=== PATIENT | female | born 1945 | race Caucasian/White ===

== ENCOUNTER 2017-06-15 06:42 | Day surgery (SDC) | END 2017-06-15 10:06 | disposition home or self-care (01) ==

== ENCOUNTER 2017-06-19 16:09 | Inpatient (IN) | payer MEDICARE, BC ==
[~2017-06-19] VITALS: Ht 165.1 cm; Wt 118.8 kg
[~2017-06-19 16:09] MED LIST: AMLO10 PO; AMOX875; ATOR40TA PO; Acetaminophen1 EAC2 PO; Aspirin325 MG PO; CADUET 5 MG PO; CEFP200 PO; CHOL10002 PO; CIPR500 PO; CLARINEX D PO; CVS CALCIUM 501 EAC2; DESL5 PO; ERGO400 PO; FURO40 PO; Flonase 0.05% N16 GM; LEVO750 PO; MEDR2.5 PO; METO10 PO; POTCIT10 PO; Prozac20 MG PO; QUIN10 PO; SOLI5 PO; TAMS.4ER PO; TRAZ50 PO; Ventolin Soln3 ML INH; [UNRECOGNIZED DRUG - OTHER] PO
[2017-06-19] MEDS ORDERED: AMOCLA500 PO ×2 (16:43→16:44)
[2017-06-19 16:55] LABS: BASOPHILS ABSOLUTE AUTO 0.09 K/mm3 (0.00-0.23); BASOPHILS PERCENT AUTO 1 % (0-2); EOSINOPHILS ABSOLUTE AUTO 0.09 K/mm3 (0.00-0.68); EOSINOPHILS PERCENT AUTO 1 % (0-6); Hematocrit 45.4 % (33.0-51.0); Hemoglobin 14.7 g/dL (11.5-16.0); IMMATURE GRAN ABSOLUTE AUTO 0.11 K/mm3 (0.00-0.10); IMMATURE GRAN PERCENT AUTO 1 % (0-1); LYMPHOCYTES ABSOLUTE AUTO 1.45 K/mm3 (0.84-5.20); LYMPHOCYTES PERCENT AUTO 9 % (21-46); MONOCYTES ABSOLUTE AUTO 1.36 K/mm3 (0.16-1.47); MONOCYTES PERCENT AUTO 9 % (4-13); Mean Corpuscular HGB 29.9 pg (26.0-34.0); Mean Corpuscular HGB Conc 32.4 g/dL (31.5-36.5); Mean Corpuscular Volume 93 fL (80-100); NEUTROPHILS ABSOLUTE AUTO 12.82 K/mm3 (1.96-9.15); NEUTROPHILS PERCENT AUTO 81 % (41-73); NRBC ABSOLUTE 0.07 K/mm3 (0.00-0.02); NRBC Auto 0.4 /100 WBC (0.0-0.2); RDW Coefficient Variation 14.1 % (11.7-14.2); RDW Standard Deviation 47.7 fL (35.1-46.3); Red Blood Cell Count 4.91 M/mm3 (3.80-5.20); White Blood Cell Count 15.92 K/mm3 (4.00-11.30)
[2017-06-19 17:02] LABS: Mean Platelet Volume 11.5 fL (9.1-12.4); Platelet Count 295 K/mm3 (150-400)
[2017-06-19 17:05] LABS: International Normalized Ratio 1.14; Prothrombin Time Results 11.9 Sec (9.7-11.5)
[2017-06-19 17:05] LABS: Bicarbonate Venous 25.1 mmol/L (24.0-30.0); PCO2 Venous 39.5 mmHg (38-42); PO2 Venous 59.2 mmHg (38-42); pH Blood Venous 7.42 (7.34-7.37)
[2017-06-19 17:18] LABS: Alanine Aminotransfer (ALT/SGP 17 U/L (12-78); Albumin, Blood 2.9 g/dL (3.4-5.0); Albumin/Globulin Ratio 0.7 (0.8-1.8); Alk Phos 96 U/L (50-136); Anion Gap 12 mmol/L (6-16); Aspartate Aminotrans (AST/SGOT 19 U/L (12-37); Bilirubin, Total 0.8 mg/dL (0.1-1.0); Blood Urea Nitrogen 28 mg/dL (8-24); Bun/Creatinine Ratio 42.9 (12.0-20.0); CO2, Blood 22 mmol/L (21-32); Calcium, Blood 9.4 mg/dL (8.5-10.1); Chloride, Blood 104 mmol/L (98-108); Creatinine, Blood 0.65 mg/dL (0.40-1.00); Globulin, Blood 4.4 g/dL (2.2-4.0); Glomerular Filtration Rate >60 (60-); Glucose, Blood 162 mg/dL (70-99); Potassium, Blood 3.9 mmol/L (3.5-5.5); Sodium, Blood 138 mmol/L (136-145); Total Protein, Blood 7.3 g/dL (6.4-8.2); Troponin I <0.015 ng/mL (0.000-0.040)
[2017-06-19] MEDS ORDERED: Retin-A20 G1 TOP (21:14)
[2017-06-19] MEDS ORDERED: ACETAMINOPHEN-1 EACH PO (21:34)
[2017-06-19] MEDS ORDERED: Ventolin5 MG/1 ML INH (21:36)
[2017-06-19] MEDS ORDERED: Centrum Silver1 EAC1 PO (21:36)
[2017-06-19] MEDS ORDERED: ALBU90OI61 INH (21:37)
[2017-06-19] MEDS ORDERED: CIPDEXSU BOTHEARS (21:39)
[2017-06-19] MEDS ORDERED: TRIA15CR3 TOP (21:58)
[2017-06-19] MEDS ORDERED: MOMENI (21:59)
[2017-06-19] MEDS ORDERED: CEFP250 PO (22:00)
[2017-06-19] MEDS ORDERED: FLUO10 PO (22:01)
[2017-06-19] MEDS ORDERED: QUIN10 PO (22:02)
[2017-06-19] MEDS ORDERED: DESL5 PO (22:03)
[2017-06-20 04:51] LABS: BASOPHILS ABSOLUTE AUTO 0.08 K/mm3 (0.00-0.23); BASOPHILS PERCENT AUTO 1 % (0-2); EOSINOPHILS ABSOLUTE AUTO 0.64 K/mm3 (0.00-0.68); EOSINOPHILS PERCENT AUTO 5 % (0-6); Hematocrit 40.7 % (33.0-51.0); Hemoglobin 12.9 g/dL (11.5-16.0); IMMATURE GRAN ABSOLUTE AUTO 0.06 K/mm3 (0.00-0.10); IMMATURE GRAN PERCENT AUTO 1 % (0-1); LYMPHOCYTES PERCENT AUTO 14 % (21-46); MONOCYTES ABSOLUTE AUTO 1.33 K/mm3 (0.16-1.47); MONOCYTES PERCENT AUTO 10 % (4-13); Mean Corpuscular HGB 29.6 pg (26.0-34.0); Mean Corpuscular HGB Conc 31.7 g/dL (31.5-36.5); Mean Corpuscular Volume 93 fL (80-100); Mean Platelet Volume 11.1 fL (9.1-12.4); NEUTROPHILS ABSOLUTE AUTO 9.19 K/mm3 (1.96-9.15); NEUTROPHILS PERCENT AUTO 70 % (41-73); NRBC ABSOLUTE 0.02 K/mm3 (0.00-0.02); NRBC Auto 0.2 /100 WBC (0.0-0.2); Platelet Count 286 K/mm3 (150-400); RDW Coefficient Variation 14.2 % (11.7-14.2); RDW Standard Deviation 48.4 fL (35.1-46.3); Red Blood Cell Count 4.36 M/mm3 (3.80-5.20)
[2017-06-20 05:15] LABS: Alanine Aminotransfer (ALT/SGP 18 U/L (12-78); Albumin, Blood 2.4 g/dL (3.4-5.0); Albumin/Globulin Ratio 0.6 (0.8-1.8); Alk Phos 77 U/L (50-136); Anion Gap 7 mmol/L (6-16); Aspartate Aminotrans (AST/SGOT 17 U/L (12-37); Bilirubin, Total 0.6 mg/dL (0.1-1.0); Blood Urea Nitrogen 22 mg/dL (8-24); Bun/Creatinine Ratio 38.5 (12.0-20.0); CO2, Blood 27 mmol/L (21-32); Calcium, Blood 8.6 mg/dL (8.5-10.1); Chloride, Blood 108 mmol/L (98-108); Creatinine, Blood 0.57 mg/dL (0.40-1.00); Globulin, Blood 3.7 g/dL (2.2-4.0); Glomerular Filtration Rate >60 (60-); Glucose, Blood 124 mg/dL (70-99); Potassium, Blood 3.8 mmol/L (3.5-5.5); Sodium, Blood 142 mmol/L (136-145); Total Protein, Blood 6.1 g/dL (6.4-8.2)
[2017-06-20 22:21] LABS: Influenza A Negative (NEGATIVE); Influenza B Negative (NEGATIVE)
[2017-06-21 05:44] LABS: Hematocrit 47.2 % (33.0-51.0); Mean Corpuscular HGB 29.8 pg (26.0-34.0); Mean Corpuscular HGB Conc 31.8 g/dL (31.5-36.5); Mean Corpuscular Volume 94 fL (80-100); Mean Platelet Volume 11.7 fL (9.1-12.4); Platelet Count 219 K/mm3 (150-400); RDW Coefficient Variation 14.6 % (11.7-14.2); RDW Standard Deviation 49.9 fL (35.1-46.3); Red Blood Cell Count 5.03 M/mm3 (3.80-5.20); White Blood Cell Count 9.69 K/mm3 (4.00-11.30)
[2017-06-21 06:02] LABS: Anion Gap 8 mmol/L (6-16); Blood Urea Nitrogen 16 mg/dL (8-24); Bun/Creatinine Ratio 27.5 (12.0-20.0); CO2, Blood 26 mmol/L (21-32); Calcium, Blood 8.7 mg/dL (8.5-10.1); Chloride, Blood 110 mmol/L (98-108); Creatinine, Blood 0.58 mg/dL (0.40-1.00); Glomerular Filtration Rate >60 (60-); Glucose, Blood 98 mg/dL (70-99); Sodium, Blood 144 mmol/L (136-145)
[2017-06-21 16:23] LABS: Vancomycin, Trough 9.7 ug/mL (5.0-10.0)
[2017-06-22 05:30] LABS: BASOPHILS ABSOLUTE AUTO 0.08 K/mm3 (0.00-0.23); BASOPHILS PERCENT AUTO 1 % (0-2); EOSINOPHILS ABSOLUTE AUTO 1.02 K/mm3 (0.00-0.68); EOSINOPHILS PERCENT AUTO 9 % (0-6); Hematocrit 42.4 % (33.0-51.0); Hemoglobin 13.3 g/dL (11.5-16.0); IMMATURE GRAN ABSOLUTE AUTO 0.05 K/mm3 (0.00-0.10); IMMATURE GRAN PERCENT AUTO 1 % (0-1); LYMPHOCYTES ABSOLUTE AUTO 1.54 K/mm3 (0.84-5.20); LYMPHOCYTES PERCENT AUTO 14 % (21-46); MONOCYTES ABSOLUTE AUTO 1.04 K/mm3 (0.16-1.47); MONOCYTES PERCENT AUTO 10 % (4-13); Mean Corpuscular HGB Conc 31.4 g/dL (31.5-36.5); Mean Corpuscular Volume 96 fL (80-100); Mean Platelet Volume 10.9 fL (9.1-12.4); NEUTROPHILS ABSOLUTE AUTO 7.25 K/mm3 (1.96-9.15); NEUTROPHILS PERCENT AUTO 66 % (41-73); Platelet Count 267 K/mm3 (150-400); RDW Coefficient Variation 14.6 % (11.7-14.2); RDW Standard Deviation 50.9 fL (35.1-46.3); Red Blood Cell Count 4.43 M/mm3 (3.80-5.20); White Blood Cell Count 10.98 K/mm3 (4.00-11.30)
[2017-06-22 06:03] LABS: Anion Gap 7 mmol/L (6-16); Blood Urea Nitrogen 11 mg/dL (8-24); Bun/Creatinine Ratio 17.2 (12.0-20.0); CO2, Blood 26 mmol/L (21-32); Chloride, Blood 107 mmol/L (98-108); Creatinine, Blood 0.64 mg/dL (0.40-1.00); Glomerular Filtration Rate >60 (60-); Glucose, Blood 109 mg/dL (70-99); Potassium, Blood 4.3 mmol/L (3.5-5.5); Sodium, Blood 140 mmol/L (136-145)
[2017-06-26 05:47] LABS: BASOPHILS ABSOLUTE AUTO 0.04 K/mm3 (0.00-0.23); BASOPHILS PERCENT AUTO 0 % (0-2); EOSINOPHILS ABSOLUTE AUTO 0.19 K/mm3 (0.00-0.68); EOSINOPHILS PERCENT AUTO 2 % (0-6); Hematocrit 42.5 % (33.0-51.0); Hemoglobin 13.6 g/dL (11.5-16.0); IMMATURE GRAN ABSOLUTE AUTO 0.06 K/mm3 (0.00-0.10); IMMATURE GRAN PERCENT AUTO 1 % (0-1); LYMPHOCYTES ABSOLUTE AUTO 1.94 K/mm3 (0.84-5.20); LYMPHOCYTES PERCENT AUTO 16 % (21-46); MONOCYTES ABSOLUTE AUTO 1.17 K/mm3 (0.16-1.47); MONOCYTES PERCENT AUTO 10 % (4-13); Mean Corpuscular HGB 29.8 pg (26.0-34.0); Mean Platelet Volume 10.6 fL (9.1-12.4); NEUTROPHILS PERCENT AUTO 72 % (41-73); Platelet Count 316 K/mm3 (150-400); RDW Coefficient Variation 14.1 % (11.7-14.2); RDW Standard Deviation 47.8 fL (35.1-46.3); Red Blood Cell Count 4.57 M/mm3 (3.80-5.20)
[2017-06-26 05:49] LABS: Mean Corpuscular Volume 93 fL (80-100)
[2017-06-26 06:05] LABS: Anion Gap 5 mmol/L (6-16); Blood Urea Nitrogen 20 mg/dL (8-24); Bun/Creatinine Ratio 26.7 (12.0-20.0); CO2, Blood 29 mmol/L (21-32); Calcium, Blood 9.3 mg/dL (8.5-10.1); Chloride, Blood 107 mmol/L (98-108); Creatinine, Blood 0.75 mg/dL (0.40-1.00); Glomerular Filtration Rate >60 (60-); Glucose, Blood 92 mg/dL (70-99); Potassium, Blood 3.9 mmol/L (3.5-5.5); Sodium, Blood 141 mmol/L (136-145)
[2017-06-27] MEDS ORDERED: MIRALAX17 GM PO (12:27)
[2017-06-27] MEDS ORDERED: DULERA 100 MCG/13 GM INH (12:31)
== END 2017-06-27 13:02 | disposition home health service (06) | DRG 871 ==
LOC: ER 16:09 → MEDS 19:11 → ENPENDDIS 06-27 10:00 → MEDS 06-27 13:02
PROVIDERS: Emergency Medicine; Internal Medicine; Internal Medicine Critical Care Medicine
DX: A41.9 Sepsis, unspecified organism (principal); J18.9 Pneumonia, unspecified organism; J96.01 Acute respiratory failure with hypoxia; R04.2 Hemoptysis; J44.1 Chronic obstructive pulmonary disease with (acute) exacerbation; J44.0 Chronic obstructive pulmonary disease with (acute) lower respiratory infection; Z68.41 Body mass index [BMI] 40.0-44.9, adult; G47.33 Obstructive sleep apnea (adult) (pediatric); I10 Essential (primary) hypertension; D41.9 Neoplasm of uncertain behavior of unspecified urinary organ; E66.01 Morbid (severe) obesity due to excess calories; R65.20 Severe sepsis without septic shock; R26.9 Unspecified abnormalities of gait and mobility; K59.00 Constipation, unspecified; Z85.118 Personal history of other malignant neoplasm of bronchus and lung; Z87.891 Personal history of nicotine dependence; Z88.8 Allergy status to other drugs, medicaments and biological substances; Z91.040 Latex allergy status; Z79.899 Other long term (current) drug therapy
CPT/HCPCS: 36415; 71045; 71046; 71260; 80048; 80053; 80202; 82803; 82947; 83605; 83880; 84484; 85025; 85027; 85610; 87040; 87070; 87205; 87804; 93005; 93010; 93306; 94640; 94667; 94760; 94761; 96365; 96375; 97110; 97116; 97162; 97530; 99285; C1751; G8978; G8979; J0456; J0696; J1650; J2405; J2543; J3370; J7030; J7050; Q9967

== ENCOUNTER → 2017-08-30 | Outpatient (CLI) | payer MEDICARE, BC ==
[~2017-08-30] MED LIST changes: +ACETAMINOPHEN-1 EACH PO; +ALBU90OI61 INH; +AMOCLA500 PO; +CEFP250 PO; +CIPDEXSU BOTHEARS; +Centrum Silver1 EAC1 PO; +DULERA 100 MCG/13 GM INH; +FLUO10 PO; +MIRALAX17 GM PO; +MOMENI; +Retin-A20 G1 TOP; +TRIA15CR3 TOP; +Ventolin5 MG/1 ML INH
== END ==
LOC: LAB SHORT 16:39 → LAB 16:39
DX: L82.1 Other seborrheic keratosis (principal); L02.02 Furuncle of face; L08.9 Local infection of the skin and subcutaneous tissue, unspecified
CPT/HCPCS: 87070; 87205

== ENCOUNTER 2020-02-04 07:20 | Day surgery (SDC) | payer MEDICARE, BC ==
[~2020-02-04] VITALS: Ht 165.1 cm; Wt 123.0 kg
[~2020-02-04 07:20] MED LIST changes: +ANORO ELLIPTA1 EAC1; +Aspir 8181 MG PO; +Bisoprolol Fumar5 MG PO; +CLOP75 PO; +FLUT.05NI; -Flonase 0.05% N16 GM; +MYRBETRIQ50 MG PO
--- NOTE | 2020-02-04 10:08 | NUR ---
PT BACK TO RECOVERY ROOM VIA BED POST PROCEDURE. DENIES ANY PAIN OR DISCOMFORT. VSS. RIGHT RADIAL TR BAND IN PLACE. SITE IS C/D/I, WITHOUT BLEEDING OR SWELLING.
--- NOTE | 2020-02-04 10:35 | NUR ---
PT EATING BREAKFAST, VISITING WITH SPOUSE. CALL LIGHT IN REACH, VSS. NO DISTRESS NOTED.
--- NOTE | 2020-02-04 11:15 | NUR ---
DR FINCH AT BEDSIDE SPEAKING WITH PT ABOUT PROCEDURE AND PLAN FOR FOLLOW UP.
--- NOTE | 2020-02-04 12:16 | NUR ---
RIGHT RADIAL TR BAND HAS BEEN FULLY DEFLATED. SITE SOFT, SLIGHTLY TENDER. NO BLEEDING OR SWELLING NOTED. PT HAS AMBULATED TO THE BATHROOM TWICE SINCE PROCEDURE WITHOUT DIFFICULTY.
--- NOTE | 2020-02-04 13:15 | NUR ---
IV DC'D, CATH INTACT. PT AND SPOUSE VERBALIZED UNDERSTANDING OF DISCHARGE INSTRUCTIONS AND FOLLOW UP INFO. PT OUT TO CAR VIA WHEELCHAIR. DENIES DISCOMFORT UPON DISCHARGE
== END 2020-02-04 13:15 | disposition home or self-care (01) ==
LOC: MHTC 07:20
PROC: 4A023N7 Measurement of Cardiac Sampling and Pressure, Left Heart, Percutaneous Approach (ICD-10-PCS; principal; 2020-02-04)
PROC: B201YZZ Plain Radiography of Multiple Coronary Arteries using Other Contrast (ICD-10-PCS; principal; 2020-02-04)
DX: I25.10 Atherosclerotic heart disease of native coronary artery without angina pectoris (principal); E78.5 Hyperlipidemia, unspecified; I11.0 Hypertensive heart disease with heart failure; I50.9 Heart failure, unspecified; J44.9 Chronic obstructive pulmonary disease, unspecified; Z88.5 Allergy status to narcotic agent; Z88.8 Allergy status to other drugs, medicaments and biological substances; Z91.040 Latex allergy status; Z87.891 Personal history of nicotine dependence; Z79.899 Other long term (current) drug therapy; Z79.82 Long term (current) use of aspirin; E66.01 Morbid (severe) obesity due to excess calories; Z68.41 Body mass index [BMI] 40.0-44.9, adult
CPT/HCPCS: 76937; 85347; 93005; 93010; 93454; 99152; 99153; A9270-GY; C1725; C1769; C1874; C1887; C1894; C9600; J1644; J2250; J3010; J7030; J7040; Q9967

== ENCOUNTER → 2021-12-23 | Outpatient (CLI) | payer MEDICARE, BC ==
[2021-12-23 11:00] LABS: Source, Urine Voided
[2021-12-23 13:03] LABS: Appearance, Urine Clear (Clear); Bilirubin, Urine Neg (Neg); Blood, Urine Neg (Neg); Glucose Qualitative, Urine Neg (Neg); Ketones, Urine Neg (Neg); Leukocyte Esterase, Urine Neg (Neg); Nitrite, Urine Neg (Neg); Protein, Urine Neg (Neg); Urobilinogen, Urine NORM (Normal); pH, Urine 6.5 (5.0-8.0)
[2021-12-23 13:17] LABS: Color, Urine Pale Yellow (P-Yellow)
== END | disposition home or self-care (01) ==
LOC: LAB 08:00 → LAB SHORT 08:00 → LAB FUT 12-21 18:25
PROVIDERS: Urology Female Pelvic Medicine and Reconstructive Surgery
DX: N39.46 Mixed incontinence (principal)
CPT/HCPCS: 81003; 87086

== ENCOUNTER 2022-02-07 11:48 | Day surgery (SDC) | payer MEDICARE, BC ==
[~2022-02-07] VITALS: Ht 165.1 cm; Wt 121.0 kg
[2022-02-07 15:39] LABS: Albumin, Blood 3.4 g/dL (3.4-5.0); Bilirubin, Total 0.9 mg/dL (0.1-1.0); Bun/Creatinine Ratio 18.1 (12.0-20.0); Calcium, Blood 9.4 mg/dL (8.5-10.1); Creatinine, Blood 0.66 mg/dL (0.40-1.00); Globulin, Blood 3.4 g/dL (2.2-4.0); Potassium, Blood 3.6 mmol/L (3.5-5.5); Total Protein, Blood 6.8 g/dL (6.4-8.2)
== END 2022-02-07 15:30 | disposition home or self-care (01) ==
LOC: ORSCSDS 11:48
PROVIDERS: Internal Medicine Gastroenterology
PROC: 0DB68ZX Excision of Stomach, Via Natural or Artificial Opening Endoscopic, Diagnostic (ICD-10-PCS; principal; 2022-02-07 13:30)
PROC: 0DB58ZX Excision of Esophagus, Via Natural or Artificial Opening Endoscopic, Diagnostic (ICD-10-PCS; principal; 2022-02-07 13:30)
PROC: 0DBH8ZX Excision of Cecum, Via Natural or Artificial Opening Endoscopic, Diagnostic (ICD-10-PCS; principal; 2022-02-07 13:30)
DX: Z12.11 Encounter for screening for malignant neoplasm of colon (principal); R10.12 Left upper quadrant pain; K22.70 Barrett's esophagus without dysplasia; Z87.11 Personal history of peptic ulcer disease; Z86.010 Personal history of colon polyps; D12.0 Benign neoplasm of cecum; K57.30 Diverticulosis of large intestine without perforation or abscess without bleeding; J44.9 Chronic obstructive pulmonary disease, unspecified; I25.10 Atherosclerotic heart disease of native coronary artery without angina pectoris; I10 Essential (primary) hypertension; G47.33 Obstructive sleep apnea (adult) (pediatric); E66.01 Morbid (severe) obesity due to excess calories; Z68.41 Body mass index [BMI] 40.0-44.9, adult; Z99.81 Dependence on supplemental oxygen; Z79.01 Long term (current) use of anticoagulants; Z79.82 Long term (current) use of aspirin; Z79.899 Other long term (current) drug therapy
CPT/HCPCS: 80053; 88305; 88341; 88342; J0330; J0461; J2405; J2704; J7120

== ENCOUNTER → 2024-01-19 | Outpatient (CLI) | payer MEDICARE, BC ==
[~2024-01-19] MED LIST changes: -ACETAMINOPHEN-1 EACH PO; +AKWA Tears15 ML BOTHEYES; +ALBU90OI6 INH; +ALEN70 PO; +ARTIFICIAL TEAR15 M6 BOTHEYES; +BUDESONIDE0.5 MG/2 M INH; +CIPROFLOX-DEXA7.5 ML BOTHEARS; +DOCU100 PO; +Diflucan150 MG PO; +EZET10 PO; +FAMO20 PO; +GUAI600T33 PO; +IPRATROPIUM BRO30 ML; +LASIX40 MG PO; +LIPITOR80 MG PO; +LISI20 PO; +METO100ER PO; +NASAL SPRAY88 ML UD; +NIGHT TIME PAI1 EAC1 PO; +PANT40 PO; +PSEU120ER PO; +Prednisone10 MG PO; +STIOLTO RESPIMAT4 G2 INH; +TROSPIUM CHLORI60 MG PO; +TRULICITY3 MG/0.5 M SC; +VISBIOME 112.51 EACH PO
[2024-01-19 11:01] LABS: Source, Urine Voided
[2024-01-19 13:36] LABS: Bilirubin, Urine Neg (Neg); Blood, Urine 5+ (Neg); Color, Urine Amber (P-Yellow); Glucose Qualitative, Urine Neg (Neg); Ketones, Urine Neg (Neg); Leukocyte Esterase, Urine 1+ (Neg); Nitrite, Urine Neg (Neg); Protein, Urine 3+ (Neg); Specific Gravity, Urine 1.015 (1.003-1.022); Urobilinogen, Urine NORM (Normal)
[2024-01-19 14:05] LABS: Appearance, Urine Hazy (Clear)
[2024-01-19 14:06] LABS: Bacteria Mod /hpf; Squamous Epithelial Cells Few /hpf (Few)
== END | disposition home or self-care (01) ==
LOC: LAB 10:58 → LAB SHORT 10:58 → EDSTATUS 01-18 09:55 → LAB FUT 01-18 09:55
PROVIDERS: Urology Female Pelvic Medicine and Reconstructive Surgery
DX: N39.0 Urinary tract infection, site not specified (principal)
CPT/HCPCS: 81001; 87077; 87086; 87186

== ENCOUNTER 2024-04-04 07:53 | Inpatient (IN) | payer MEDICARE, BC ==
[~2024-04-04] VITALS: Ht 162.6 cm; Wt 107.3 kg
[~2024-04-04 07:53] MED LIST changes: -LIPITOR80 MG PO
[2024-04-04] MEDS ORDERED: Ondansetron HCl 2 MG / ML 2ML Vial IV ONE (08:00)
[2024-04-04] MEDS ORDERED: Ipratropium/Albuterol SulF 2.5-0.5MG/3 ML Amp INH PRN (08:15)
[2024-04-04 08:34] LABS: Source, Urine Foley catheter
[2024-04-04 08:37] LABS: Appearance, Urine Clear (Clear); Bilirubin, Urine Neg (Neg); Blood, Urine Neg (Neg); Color, Urine Yellow (P-Yellow); Glucose Qualitative, Urine Neg (Neg); Ketones, Urine Neg (Neg); Leukocyte Esterase, Urine Neg (Neg); Nitrite, Urine Neg (Neg); Protein, Urine 2+ (Neg); Specific Gravity, Urine 1.015 (1.003-1.022); Urobilinogen, Urine 1+ (Normal)
[2024-04-04] MEDS ORDERED: CefTRIAXone Sodium 1,000 MG in NS 100 ML IV ONE (08:40)
[2024-04-04] MEDS ORDERED: Furosemide 10 MG/ML 4ML Vial IV ONE (08:40)
[2024-04-04] MEDS ORDERED: Azithromycin 500 MG in NS 250 ML IV ONE (08:40)
[2024-04-04 08:44] LABS: BASOPHILS ABSOLUTE AUTO 0.06 K/mm3 (0.00-0.23); BASOPHILS PERCENT AUTO 0 % (0-2); EOSINOPHILS ABSOLUTE AUTO 0.04 K/mm3 (0.00-0.68); EOSINOPHILS PERCENT AUTO 0 % (0-6); Hematocrit 42.5 % (33.0-51.0); Hemoglobin 13.2 g/dL (11.5-16.0); IMMATURE GRAN ABSOLUTE AUTO 0.08 K/mm3 (0.00-0.10); IMMATURE GRAN PERCENT AUTO 1 % (0-1); LYMPHOCYTES ABSOLUTE AUTO 3.76 K/mm3 (0.84-5.20); LYMPHOCYTES PERCENT AUTO 26 % (21-46); MONOCYTES ABSOLUTE AUTO 1.27 K/mm3 (0.16-1.47); MONOCYTES PERCENT AUTO 9 % (4-13); Mean Corpuscular HGB 30.5 pg (26.0-34.0); Mean Corpuscular HGB Conc 31.1 g/dL (31.5-36.5); Mean Corpuscular Volume 98 fL (80-100); Mean Platelet Volume 11.6 fL (9.1-12.4); NEUTROPHILS ABSOLUTE AUTO 9.55 K/mm3 (1.96-9.15); NEUTROPHILS PERCENT AUTO 65 % (41-73); Platelet Count 276 K/mm3 (150-400); RDW Coefficient Variation 14.4 % (11.7-14.2); RDW Standard Deviation 52.1 fL (35.1-46.3); Red Blood Cell Count 4.33 M/mm3 (3.80-5.20); White Blood Cell Count 14.76 K/mm3 (4.00-11.30)
[2024-04-04 08:49] LABS: Base Excess Venous -12.2 mmol/L; Bicarbonate Venous 15.1 mmol/L (24.0-30.0); PCO2 Venous 43.9 mmHg (38-42); pH Blood Venous 7.18 (7.34-7.37)
[2024-04-04 09:00] LABS: Albumin, Blood 2.9 g/dL (3.4-5.0); Albumin/Globulin Ratio 0.8 (0.8-1.8); Bilirubin, Total 1.3 mg/dL (0.1-1.0); Bun/Creatinine Ratio 29.7 (12.0-20.0); Calcium, Blood 9.1 mg/dL (8.5-10.1); Creatinine, Blood 0.81 mg/dL (0.40-1.00); Globulin, Blood 3.5 g/dL (2.2-4.0); Potassium, Blood 3.7 mmol/L (3.5-5.5); Total Protein, Blood 6.4 g/dL (6.4-8.2)
[2024-04-04 09:06] LABS: Bacteria Few /hpf; Red Blood Cells, Urine 0-2 /hpf (0-2); Squamous Epithelial Cells Few /hpf (Few)
[2024-04-04] MEDS ORDERED: Bisacodyl 10 MG Supp PR PRN (09:50)
[2024-04-04] MEDS ORDERED: Ondansetron 4 MG TAB PO PRN (09:55)
[2024-04-04] MEDS ORDERED: TraZODone HCl 50 MG Tab PO PRN (09:55)
[2024-04-04] MEDS ORDERED: Magnesium Hydroxide Conc 10 ML UDC PO PRN (09:55)
[2024-04-04] MEDS ORDERED: FLU VACC TS2024-25(6MOS UP)/PF 45 MCG/0.5 ML SYRINGE IM SCH (09:55)
[2024-04-04] MEDS ORDERED: Metolazone 2.5 MG Tab PO ONE (09:55)
[2024-04-04] MEDS ORDERED: Ipratropium/Albuterol SulF 2.5-0.5MG/3 ML Amp INH SCH (10:00)
[2024-04-04] MEDS ORDERED: Albuterol 2.5 MG/3 ML VIAL INH PRN (10:00)
[2024-04-04] MEDS ORDERED: HydrALAZINE HCl 20 MG / ML 1ML Vial IV PRN (10:10)
[2024-04-04] MEDS ORDERED: Mometasone/Formoterol MDI 200/5 mcg 13 GM INH SCH (10:30)
[2024-04-04 11:34] LABS: Adenovirus Not Detected (NOT DETECT); Bordetella pertussis Not Detected (NOT DETECT); Chlamydophila pneumoniae Not Detected (NOT DETECT); Coronavirus 229E Not Detected (NOT DETECT); Coronavirus HKU1 Not Detected (NOT DETECT); Coronavirus NL63 Not Detected (NOT DETECT); Coronavirus OC43 Not Detected (NOT DETECT); Human Metapneumovirus Not Detected (NOT DETECT); Human Rhinovirus/Enterovirus Not Detected (NOT DETECT); Influenza A/2009-H1 Not Detected (NOT DETECT); Influenza A/H1 Not Detected (NOT DETECT); Influenza A/H3 Not Detected (NOT DETECT); Influenza B Not Detected (NOT DETECT); Mycoplasma pneumoniae Not Detected (NOT DETECT); Parainfluenza Virus 1 Not Detected (NOT DETECT); Parainfluenza Virus 2 Not Detected (NOT DETECT); Parainfluenza Virus 3 Not Detected (NOT DETECT); Parainfluenza Virus 4 Not Detected (NOT DETECT); Respiratory Syncytial Virus Not Detected (NOT DETECT); SARS-Cov-2 (COVID-19), BioFire Not Detected (NOT DETECT)
[2024-04-04 12:36] VITALS: BP 95/54
[2024-04-04] MEDS ORDERED: LISI5 PO (13:07)
[2024-04-04 13:09] LABS: Base Excess Venous 1.3 mmol/L; Bicarbonate Venous 24.5 mmol/L (24.0-30.0); PCO2 Venous 45.8 mmHg (38-42); pH Blood Venous 7.37 (7.34-7.37)
[2024-04-04 15:14] VITALS: BP 105/55
--- NOTE | 2024-04-04 17:57 | NUR ---
ASSUMPTION OF CARE/SHIFT SUMMARY REPORT RECIEVED FROM SENIOR DIRECTOR INSIGHT. PT ARRIVED TO PCU AROUND 1230. PT SLID FROM ER GURNEY TO PCU BED. PT A&O X4, CALM, COOPERATIVE TO CARE. HR IN THE 80'S SINUS RHYTHM, SBP IN THE 90'S-100'S, PT DENIES CP/PRESSURE, NUMB/TINGLING. L/S WITH CRACKLES T/O, HX OF R LOWER LOBECTOMY, O2 RANGING FROM THE 80'S-90'S ON BIPAP SETTINGS OF 12, 8, FIO2 70%. PT DESATS TO THE MID 70'S LOW 80'S WITH MINIMAL EXEERTION/TALKING. PT UNABLE TO TOLERATE GOING OFF BIPAP. PT WITH BARCENAS CATH IN PLACE, DRAINING TO GRAVITY. DIURESING PT. WILL CONTINUE TO MONITOR PT AND REPORT TO 911 OPERATOR RN.
[2024-04-04] MEDS ORDERED: Bumetanide 0.25 MG/ML 4ML ViaL IV SCH (18:00)
[2024-04-04 18:16] VITALS: BP 120/55
[2024-04-04 19:36] VITALS: BP 123/55
[2024-04-04] MEDS ORDERED: Famotidine 20 MG Tab PO SCH (21:00)
[2024-04-04] MEDS ORDERED: Metoprolol Tartrate 50 MG Tab PO SCH (21:00)
[2024-04-04] MEDS ORDERED: Lactobacil 2-S.Thermo-Bifido 1 1 Cap PO SCH (21:00)
[2024-04-04] MEDS ORDERED: Docusate Sodium 100 MG Cap PO SCH (21:00)
[2024-04-04] MEDS ORDERED: GuaiFENesin 600 MG TabCR PO SCH (21:00)
--- NOTE | 2024-04-04 21:43 | NUR ---
ASSUMPTION OF CARE THIS RN ASSUMED CARE OF PT AT 1900. UPON INITIAL ASSESSMENT, PT A&OX4, DENIES PAIN. C/O DISCOMFORT R/T BIPAP. BIPAP MASK CHANGED TO RELIEVE PRESSURE FROM PT'S NOSE, PT ENDORSES IMPROVEMENT IN COMFORT LEVEL. BIPAP REMOVED FOR MED ADMINISTRATION, PT DESATTED TO 70'S WHILE ON 15L. PT REMAINS BIPAP DEPENDENET. SHE IS COMPLIANT WITH CARES. VITALLY STABLE. BARCENAS CATHETER IN PLACE PATENT, DRAINING BY GRAVITY. PT'S NEEDS MET AT THIS TIME.
[2024-04-04 23:41] VITALS: BP 112/61
[2024-04-05] VITALS (11 sets, daily range): BP systolic 82–133; BP diastolic 45–106
--- NOTE | 2024-04-05 05:43 | NUR ---
SHIFT SUMMARY PT BIPAP DEPENDENT WITH FIO2 OF 60%. BRIEFLY TOLERATED 15L OXYMASK FOR SOME ORAL CARE THIS AM. NO ACUTE DISTRESS AT THIS TIME.
[2024-04-05 06:17] LABS: BASOPHILS ABSOLUTE AUTO 0.03 K/mm3 (0.00-0.23); BASOPHILS PERCENT AUTO 0 % (0-2); EOSINOPHILS ABSOLUTE AUTO 0.15 K/mm3 (0.00-0.68); EOSINOPHILS PERCENT AUTO 2 % (0-6); Hematocrit 38.6 % (33.0-51.0); Hemoglobin 12.2 g/dL (11.5-16.0); IMMATURE GRAN ABSOLUTE AUTO 0.03 K/mm3 (0.00-0.10); IMMATURE GRAN PERCENT AUTO 0 % (0-1); LYMPHOCYTES ABSOLUTE AUTO 0.95 K/mm3 (0.84-5.20); LYMPHOCYTES PERCENT AUTO 10 % (21-46); MONOCYTES ABSOLUTE AUTO 1.28 K/mm3 (0.16-1.47); MONOCYTES PERCENT AUTO 13 % (4-13); Mean Corpuscular HGB 30.5 pg (26.0-34.0); Mean Corpuscular HGB Conc 31.6 g/dL (31.5-36.5); Mean Corpuscular Volume 97 fL (80-100); Mean Platelet Volume 11.5 fL (9.1-12.4); NEUTROPHILS ABSOLUTE AUTO 7.15 K/mm3 (1.96-9.15); NEUTROPHILS PERCENT AUTO 75 % (41-73); Platelet Count 219 K/mm3 (150-400); RDW Coefficient Variation 14.6 % (11.7-14.2); RDW Standard Deviation 52.6 fL (35.1-46.3); White Blood Cell Count 9.59 K/mm3 (4.00-11.30)
[2024-04-05 06:39] LABS: Albumin, Blood 2.7 g/dL (3.4-5.0); Albumin/Globulin Ratio 0.8 (0.8-1.8); Calcium, Blood 9.1 mg/dL (8.5-10.1); Creatinine, Blood 0.79 mg/dL (0.40-1.00); Globulin, Blood 3.4 g/dL (2.2-4.0); Magnesium, Blood 2.3 mg/dL (1.6-2.4); Total Protein, Blood 6.1 g/dL (6.4-8.2)
[2024-04-05] MEDS ORDERED: MethylPREDNISolone Sod Succ 125 MG Vial IV SCH (08:00)
[2024-04-05] MEDS ORDERED: Metolazone 2.5 MG Tab PO ONE (08:00)
[2024-04-05] MEDS ORDERED: FLUoxetine HCL 20 MG CAP PO SCH (09:00)
[2024-04-05] MEDS ORDERED: Enoxaparin 40 MG/0.4 ML SYR SC SCH (09:00)
[2024-04-05] MEDS ORDERED: AmLODIPine Besylate 5 MG Tab PO SCH (09:00)
[2024-04-05] MEDS ORDERED: Atorvastatin 40 MG Tab PO SCH (09:00)
[2024-04-05] MEDS ORDERED: Clopidogrel Bisulfate 75 MG Tab PO SCH (09:00)
[2024-04-05] MEDS ORDERED: Azithromycin 500 MG in NS 250 ML IV SCH (09:00)
[2024-04-05] MEDS ORDERED: Polyethylene Glycol 3350 17 gm PO SCH (09:00)
[2024-04-05] MEDS ORDERED: Bumetanide 0.25 MG/ML 4ML ViaL IV SCH (09:00)
[2024-04-05] MEDS ORDERED: CefTRIAXone Sodium 2,000 MG in NS 100 ML IV SCH (09:00)
[2024-04-05] MEDS ORDERED: Loratadine 10 MG Tab PO SCH (09:00)
[2024-04-05] MEDS ORDERED: Fluticasone 0.05% Nasal Spray SCH (09:00)
[2024-04-05] MEDS ORDERED: Methocarbamol 500 MG Tab PO PRN (11:20)
--- NOTE | 2024-04-05 18:03 | NUR ---
CALL PLACED TO PROVIDER. PTS BLOOD PRESSURE TRENDING DOWN, SBP IN THE 80'S-90'S, LAST BP 91/45 MAP 58, SHE IS ASYMPTOMATIC. PROVIDER NOTIFIED. NO NEW ORDERS AT THIS TIME. PER PROVIDER WILL HOLD ALL BLOOD PRESSURE MEDICATIONS AND DIURETICS UNTIL BLOOD PRESSURE IMPROVES, PT TO BE ON BEDREST, NO GETTING UP AT THIS TIME. IF PTS BLOOD PRESSURE CONTINUES TO TREND DOWN PROVIDER TO BE CALLED AND NOTIFIED FOR FURTHER INSTRUCTION. BP RECHECKED AND NOW AT 99/52 MAP 67. WILL MONITOR PT AND CALL PROVIDER IN BP CONTINUES TO TREND DOWN.
--- NOTE | 2024-04-05 18:22 | NUR ---
SHIFT SUMMARY PT A&O X4, CALM, COOPERATIVE TO CARE. SINUS RHYTHM, 70'S, DENIES CP/PRESSURE, NUMB/TINGLING, SBP IN THE 100'S T/O SHIFT, LAST COUPLE PRESSURE HAVE BEEN SOFT, NOTIFIED, HOLDING BP MEDICATIONS AND DIURETIC FOR NOW. PT DENIES LIGHTHEADEDNESS, DIZZY, BLURRY VISION. PT TO STAY IN BED AND NOT GET UP UNTIL BP IMPROVED. PT O2 >90%, ALTERNATING BETWEEN BIPAP 18/14, FIO2 50%, AND 50L HIGH FLOW HEATED NC. PT IS ABLE TO TOLERATE BEING OFF BIPAP FOR PO INTAKE FOR SHORT PERIODS OF TIME. SHE DESATS IN THE LOW 80'S BUT RECOVERS WITH BIPAP. PT DEIES QUESTIONS OR CONCERNS WILL CONTINUE TO MONITOR AND REPORT TO ASSOCIATE PROFESSOR OF LIBRARY MEDIA RN.
--- NOTE | 2024-04-06 02:38 | NUR ---
SHIFT SUMMARY PT INTERMITTENTLY ANXIOUS THIS SHIFT. MAINTAINING SPO2 > 90%. TOLERATING BIPAP 60% FIO2 FAIRLY WELL. VITALLY STABLE AT THIS TIME.
[2024-04-06 03:49] VITALS: BP 132/67
[2024-04-06 06:14] LABS: Hemoglobin 12.5 g/dL (11.5-16.0); Mean Corpuscular HGB 30.9 pg (26.0-34.0); Mean Corpuscular HGB Conc 32.1 g/dL (31.5-36.5); Mean Corpuscular Volume 96 fL (80-100); Mean Platelet Volume 12.1 fL (9.1-12.4); Platelet Count 252 K/mm3 (150-400); RDW Coefficient Variation 14.6 % (11.7-14.2); RDW Standard Deviation 51.9 fL (35.1-46.3); Red Blood Cell Count 4.05 M/mm3 (3.80-5.20); White Blood Cell Count 8.63 K/mm3 (4.00-11.30)
[2024-04-06 06:45] LABS: Calcium, Blood 9.1 mg/dL (8.5-10.1); Creatinine, Blood 0.96 mg/dL (0.40-1.00); Magnesium, Blood 2.7 mg/dL (1.6-2.4); Potassium, Blood 3.6 mmol/L (3.5-5.5)
[2024-04-06 07:21] VITALS: BP 123/52
[2024-04-06] MEDS ORDERED: Metolazone 2.5 MG Tab PO SCH (09:00)
[2024-04-06] MEDS ORDERED: TraZODone HCl 50 MG Tab PO PRN (11:55)
[2024-04-06 15:39] VITALS: BP 104/59
[2024-04-06 18:28] VITALS: BP 96/71
--- NOTE | 2024-04-06 18:39 | NUR ---
SHIFT SUMMARY A&O X4, ANXIOUS, COOPERATIVE TO CARE. SINUS RHYTHM, 80'S, DENIES CP/PRESSURE, SBP IN THE 100'S, PT DENIES ANY DIZZY, WHITMORE, BLURRY VISION. ALTERNATING BETWEEN HIGH FLOW HEATED NC 50L FIO2 60% AND BIPAP 18/14, FIO2 40%. O2 >90%, SHE OCASSIONALLY DESATS BUT RECOVERES AFTER BIPAP IS PUT BACK ON AND DEEP BREATHING. PT TO CONTINUE DIURESING BP ALLOWS. PT DENIES ANY QUESTIONS OR CONCERNS AT THIS TIME, WILL MONITOR AND REPORT TO RISK TECH RN.
[2024-04-06 19:11] VITALS: BP 105/55
[2024-04-06] MEDS ORDERED: BusPIRone HCl 5 MG Tab PO SCH (21:00)
[2024-04-07] VITALS (7 sets, daily range): BP systolic 111–164; BP diastolic 55–86
[2024-04-07 05:21] LABS: Hematocrit 40.1 % (33.0-51.0); Hemoglobin 12.9 g/dL (11.5-16.0)
[2024-04-07 05:47] LABS: Bun/Creatinine Ratio 51.8 (12.0-20.0); Creatinine, Blood 0.99 mg/dL (0.40-1.00); Magnesium, Blood 2.6 mg/dL (1.6-2.4); Phosphorus, Blood 3.2 mg/dL (2.5-4.9); Potassium, Blood 3.4 mmol/L (3.5-5.5)
--- NOTE | 2024-04-07 09:21 | NUR ---
AM NOTE: PATIENT ALERT AND ORIENTED. VERY ANXIOUS IN GENERAL ABOUT HOSPITAL STAY. PATIENT EXPRESSES SADNESS SURROUNDING HER HUSBANDS BLADDER CANCER AND RECENTLY FINDING OUT HER BROTHER IS ALSO IN THE HOSPITAL. THIS RN PROVIDES LISTENING AND SUPPORT. PERRLA, WEARING GLASSES. OVERALL WEAK. BED REST AT THIS TIME DUE TO OXYGEN NEEDS. PATIENT ABLE TO HELP STAFF TURN IN BED. DENIES NUMBNESS/TINGLING. TELE SHOWING SR WITH HR 70-80'S. SBP ELEVATED THIS AM IN THE 160'S. DENIES CHEST PAIN/PRESSURE/PALPITATIONS. EDEMA IMPROVING PER PATIENT. POWERGLIDE TO LEFT UPPER ARM SALINE LOCKED POST ANTIBIOTIC INFUSION. ON AIRVO AT 50L AND 59% FIO2. SATING MID 90'S. BIPAP ON STANDBY. DESATS TO HIGH 80'S UPON TALKING AND MOVING IN BED. OCCASIONAL COUGH, PATIENT DENIES SPUTUM PRODUCTION. RR 20-22. EVEN AND UNLABORED RESPIRATIONS AT REST. PATIENT VERY CONCERNED ABOUT GETTING MORE OXYGEN AT HOME. THIS RN REINFORCED PATIENTS HOSPITAL OXYGEN IS STILL BEING TITRATED AND INVOLVEMENT OF CASE MANAGEMENT TO HELP MANAGE HOME OXYGEN SITUATION ONCE PATIENT IS CLOSER TO DISCHARGE. BOWEL TONES PRESENT IN ALL FOUR QUADRANTS. PATIENT DENIES ABDOMINAL PAIN/NAUSEA. EXPRESSES "EXTREME HUNGER" THIS AM. TOLERATING PO DIET. FLUID RESTRICTION IN PLACE. PATIENT EDUCATED ON FLUID RESTRICTION AND CHF. PATIENT COMPLAINS OF NOT HAVING BOWEL MOVEMENT YET. STOOL SOFTNERS AND BOWEL CARE CONTINUED. BARCENAS CATH IN PLACE DRAINING CLEAR/YELLOW URINE. CATH CARE COMPLETED THIS AM. SKIN OVERALL C/D/I WITH VERY SMALL EXCORIATION TO LEFT GROIN/PANUS, BARRIER CREAM APPLIED. SCATTERED BRUISING. DR. ALLEN AT BEDSIDE THIS AM, THIS RN PRESENT FOR MD JONES. NO NEW ORDERS FOR THIS RN TO PLACE. THIS RN SPOKE WITH PATIENT SON ON PHONE THIS AM AND PROVIDED UPDATE. CALL LIGHT IN REACH. DENIES NEEDS AT THIS TIME.
[2024-04-07] MEDS ORDERED: Acetaminophen 500MG/DP-Hydram 25MG HCL 1 Tab PO PRN (09:30)
[2024-04-07] MEDS ORDERED: BusPIRone HCl 10 MG Tab PO PRN (09:35)
[2024-04-07] MEDS ORDERED: Acetaminophen 325 MG TABLET PO PRN (09:35)
[2024-04-07] MEDS ORDERED: BusPIRone HCl 10 MG Tab PO SCH (10:00)
--- NOTE | 2024-04-07 10:57 | NUR ---
PATIENT ATTEMPTED BOWEL MOVEMENT ON BEDPAN WITH NO SUCCESS. PLAN FOR MORE BOWEL CARE MEDS. JUST WITH TURNING IN BED FOR BEDPAN ASSISTANCE PATIENT DESATS TO 81%, NEEDING ADDITIONAL OXYGEN TO RECOVER.
[2024-04-07] MEDS ORDERED: Insulin Human Lispro 100 Units/ML 3ML Syringe SC SCH (11:30)
[2024-04-07] MEDS ORDERED: Lactulose 20 GM/30 ML UDC PO SCH (13:00)
--- NOTE | 2024-04-07 13:15 | NUR ---
VITAL SIGNS REMAIN STABLE. DR. ROJAS TO BEDSIDE. THIS RN AND PRESENT FOR MD VISIT. NO NEW ORDERS FOR THIS RN TO PLACE. PATIENT ANXIOUS ABOUT GOING HOME AND HAVING ALL THE RIGHT EQUIPMENT. DR. ROJAS AND THIS RN REASSURED PATIENT SHE WILL NOT DISCHARGE UNTIL SHE IS MEDICALLY STABLE AND ALL HER HOME EQUIPMENT AND NEEDS ARE FIGURED OUT. PATIENT FEELING BETTER AFTER DISCUSSION. REMAINS AT BEDSIDE. CALL LIGHT IN REACH.
--- NOTE | 2024-04-07 16:42 | NUR ---
SHIFT SUMMARY: NO ACUTE CHANGES. PATIENT REMAINS ALERT AND ORIENTED. TELE CONTINUES TO SHOW SR. NO TELE EVENTS THIS SHIFT. REMAINS ON AIRVO AT 50L AND 60% SATING 90-94%. DESATING TO MID 80'S WITH TALKING AND MOVING AROUND IN BED. PHYSICAL THERAPY IN TO WORK WITH PATIENT IN BED. BOWEL CARES MEDS PROVIDED. PATIENT ON BEDPAN TWICE THIS SHIFT ATTEMPTING BOWEL MOVEMENTS. PASSING GAS. BARCENAS CATH CONTINUES TO DRAIN CLEAR/YELLOW URINE. FLUID RESTRICTION IN PLACE. TO BEDSIDE THIS SHIFT AND UPDATED BY THIS RN. THIS RN ALSO SPOKE ON PHONE WITH PATIENTS NIDHI HICKS AND PROVIDED UPDATE. CALL LIGHT IN REACH.
[2024-04-07] MEDS ORDERED: MethylPREDNISolone Sod Succ 125 MG Vial IV SCH (21:00)
[2024-04-08 04:35] LABS: Hematocrit 41.3 % (33.0-51.0); Hemoglobin 13.6 g/dL (11.5-16.0)
[2024-04-08 04:44] VITALS: BP 134/73
[2024-04-08 04:57] LABS: Magnesium, Blood 2.5 mg/dL (1.6-2.4)
[2024-04-08 04:58] LABS: Calcium, Blood 9.7 mg/dL (8.5-10.1); Creatinine, Blood 1.02 mg/dL (0.40-1.00); Potassium, Blood 3.3 mmol/L (3.5-5.5)
[2024-04-08] MEDS ORDERED: Potassium Chloride 20 MEQ TabCR PO ONE (07:00)
[2024-04-08 08:01] VITALS: BP 133/68
--- NOTE | 2024-04-08 10:00 | NUR ---
MD AT BEDSIDE: MD CAME TO BEDSIDE AND ROUNDED ON PATIENT. PLAN WILL BE CONTINUE MEDICATIONS AND GET HER OXYGEN NEEDS DOWN.
--- NOTE | 2024-04-08 10:18 | NUR ---
PATIENT DANGLED ON EDGE OF BED AND WAS ABLE TO STAND UP BESIDE THE BED WITH THE FRONT WHEELED WALKER AND DID WELL. DID NOT DESAT AND PATIENT STATED SHE DID NOT FEEL LIGHT HEADED OR DIZZY. BACK IN BED AND RESTING WITH THE BED AT THE LOWEST POSITION AND CALL LIGHT WITHIN REACH.
[2024-04-08] MEDS ORDERED: Ofloxacin 0.3% Otic Soln 5 ML RIGHTEAR SCH (10:27)
[2024-04-08 11:52] VITALS: BP 121/65
--- NOTE | 2024-04-08 16:42 | NUR ---
HANDOFF REPORT: PATIENT IS ALERT AND ORIENTED X4 AND ACTIVE IN HER CARE. IS SATTING >92% ON AIRVO WITH FIO2 ON 61%. ON TELE SHOWING SINUS RYTHM WITH RATE IN 70'S. WAS ABLE TO STAND UP AT BEDSIDE WITH FWW AND TOLERATED IT WELL. NEEDED SOME COVERAGE FOR BLOOD SUGARS. TALKED WITH FBI INVESTIGATOR REGARDING PLACEMENT AFTER DISCHARGE. PLAN IS CONTINUE TO DECREASE OXYGEN NEEDS AND WORK ON GETTING UP MORE. REPORT WAS GIVEN TO DYAN FORBES WHO WILL TAKE OVER CARE.
[2024-04-08 16:45] VITALS: BP 112/54
[2024-04-08] MEDS ORDERED: Potassium Chloride 20 MEQ TabCR PO SCH (17:00)
[2024-04-08 20:12] VITALS: BP 96/54
[2024-04-08 23:26] VITALS: BP 118/67
[2024-04-09 03:27] VITALS: BP 120/62
--- NOTE | 2024-04-09 04:22 | NUR ---
SHIFT SUMMARY THIS RN ASSUMED CARE OF PATIENT AT 19. NO ACUTE CHANGES OVERNIGHT. PT USING AIRVO T/O THIS SHIFT, 45L AND 55% FIO2. PT A&O X4. CALLING APPROPRIATELY. SBP 90'S AT BEGINNING OF SHIFT, OTHERWISE VITALS HAVE REMAINED STABLE. PT REPOSTIIONING SELF IN BED INDPENDENTLY. PT MAINTAINED FLUID RESTRICTION DURING THIS SHIFT. BARCENAS CATHETER PATENT AND DRAINING TO GRAVITY. BED IN LOWEST POSTITION AND CALL LIGHT WITHIN REACH. THIS RN WILL REPORT TO ONCOMING DAYSHIFT RN.
[2024-04-09 04:49] LABS: Bun/Creatinine Ratio 56.4 (12.0-20.0); Calcium, Blood 9.7 mg/dL (8.5-10.1); Creatinine, Blood 1.1 mg/dL (0.40-1.00); Potassium, Blood 3.4 mmol/L (3.5-5.5)
[2024-04-09 07:41] VITALS: BP 117/63
--- NOTE | 2024-04-09 10:25 | NUR ---
AM NOTE: PATIENT ALERT AND ORIENTED. VERY ANXIOUS ABOUT WHAT WILL HAPPEN WHEN PATIENT GOES HOME. THIS RN REASSURED PATIENT SHE WILL NOT BE DISCHARGED UNTIL SHE IS MEDICALLY STABLE AND HOME OXYGEN OR REHAB IS FIGURED OUT. PT/OT ORDERS IN PLACE. PLAN FOR PATIENT TO STAND AT EDGE OF BED TODAY AND POSSIBLY SIT IN CHAIR FOR MEALS. TELE SHOWING SR WITH HR 70'S. SBP 110'S THIS AM. DENIES CHEST PAIN/PRESSURE/PALPITATIONS. PPP. POWERGLIDE SALINE LOCKED. MINIMAL EDEMA TO BLE, IMPROVED. FLUID RESTRICTION IN PLACE. STRICT I/0. ON AIRVO AT 45L AND 55%. SATING MID 90'S. LUNG SOUNDS CLEAR IN BILATERAL UPPER LOBES AND DIMINISHED OTHERWISE. OCCASIONAL MOIST SOUNDING COUGH. DENIES SPUTUM PRODUCTION. BOWEL TONES PRESENT IN ALL QUADRANTS. TOLERATING PO DIET. BARCENAS CATH IN PLACE DRAINING TO GRAVITY. CATH CARE COMPLETED THIS AM. URINE CLEAR/YELLOW. BOWEL CARE MEDS GIVEN THIS AM. DENIES ABDOMINAL PAIN/NAUSEA. THIS RN REVIEWED EDUCATION WITH PATIENT CONCERNING CONGESTIVE HEART FAILURE, EMPHYSEMA, AND DIURETICS. CALL LIGHT IN REACH, PATIENT DENIES NEEDS AT THIS TIME.
[2024-04-09 11:18] VITALS: BP 107/65
[2024-04-09 16:06] VITALS: BP 94/60
[2024-04-09 18:09] VITALS: BP 97/63
--- NOTE | 2024-04-09 18:12 | NUR ---
SHIFT SUMMARY: NO ACUTE CHANGES. PATIENT UP TO CHAIR AT BEDSIDE FOR A COUPLE HOURS THIS AFTERNOON AND TOLERATED WELL. TELE CONTINUES TO SHOW SR WITH HR 60-70'S. AIRVO 45L AND 45%. BARCENAS CATH CONTINUES TO DRAIN CLEAR/YELLOW URINE. TOLERATING PO DIET WELL. ACHS BLOOD SUGARS IN PLACE. AND FRIENDS AT BEDSIDE THIS AFTERNOON. CALL LIGHT IN REACH. DENIES NEEDS.
[2024-04-09 19:46] VITALS: BP 104/71
[2024-04-09] MEDS ORDERED: Insulin Glargine-Yfgn 100 Unit/mL 3 ML SYR SC SCH (21:00)
[2024-04-10] VITALS (7 sets, daily range): BP systolic 105–123; BP diastolic 58–90
--- NOTE | 2024-04-10 04:27 | NUR ---
SHIFT SUMMARY NO ACUTE CHANGES DURING THIS SHIFT. PT SWITCHED FROM AIRVO TO HIFLOW NC AT BEGINNING OF SHIFT. PT WAS ON 10L VIA NC AT BEGINNNING OF SHIFT, PT WAS TITRATED DOWN TO 7L AND REMAINS ON 7L AT THIS TIME. SPO2 >88%. OTHER VSS. PT CALLING APPROPRIATELY. REPOSITIONING SELF INDEPENDENTLY. BARCENAS CATHETER PATENT AND DRAINING TO GRAVITY. BED IN LOWEST POSITION AND CALL LIGHT WITHIN REACH. THIS RN WILL REPORT TO ONCOMING DAYSHIFT RN.
[2024-04-10 05:53] LABS: Bun/Creatinine Ratio 60.2 (12.0-20.0); Calcium, Blood 9.3 mg/dL (8.5-10.1); Creatinine, Blood 1.13 mg/dL (0.40-1.00); Potassium, Blood 3.9 mmol/L (3.5-5.5)
[2024-04-10] MEDS ORDERED: Famotidine 20 MG Tab PO SCH (09:00)
[2024-04-10] MEDS ORDERED: Acetaminophen 325 MG TABLET PO PRN (09:25)
[2024-04-10] MEDS ORDERED: PredniSONE 20 MG Tab PO SCH (10:00)
--- NOTE | 2024-04-10 17:48 | NUR ---
Shift Summary Pt alert, oriented x4; anxious t/o shift. Expressed concern regarding breathing and o2 titration. Spo2 kept >88% on 7-10l during shift. Pt reports "all over" pain this am, medicated x1 with tylenol. Pt denies chest pain/pressure, nausea, numb/tingling. Pt up to chair with 1 person assist this am, stayed up until after lunch time. When initially up in chair pt reporting dizziness, resolved. Tele sinus, bp soft at times but stable this afternoon. Abd soft, nontender hypoactive bt; pt had bm during shift. Pt noncompliant with fluid restriction, pt educated on need for restrictions and patient continues to ask for additional fluid and had friend bring in a smoothie. No other acute changes noted. Plans to take out aguirre catheter this evening. Will continue to monitor.
--- NOTE | 2024-04-10 18:21 | NUR ---
Patient refusing to allow staff to remove aguirre catheter, attempted to educate patient on increased risk for infection the longer the aguirre catheter was in place and the plan had been discussed with the Dr, patient continues to refuse the removal. Dr Meraz notified, no new orders at this time.
[2024-04-11 03:43] VITALS: BP 121/83
--- NOTE | 2024-04-11 04:16 | NUR ---
SHIFT SUMMARY NO ACUTE CHANGES OVERNIGHT. NEURO INTACT. PT CONTINUES TO BE ANXIOUS WITH PLAN OF CARE. EDUCATED T/O SHIFT REGARDING PLAN OF CARE. PT CONTINUES TO REFUSE REMOVAL OF BARCENAS CATHETER. EDUCATED PATIENT ON NEED TO REMOVE CATHETER. BARCENAS CATHETER REMAINS IN PLACE AND DRAINING TO GRAVITY. PT TITRATED DOWN TO 5L VIA NC WHICH IS BASELINE AT HOME. PT REMAINS ON 5L VIA NC WITH SPO2 >88%. OTHER VSS. PT ABLE TO REPOSITION SELF IN BED INDEPENDENTLY. FLUID RESTRICTION MAINTAINED. PT UNDER NOC FLUID LIMIT CURRENTLY. BED IN LOWEST POSITION AND CALL LIGHT WITHIN REACH. THIS RN WILL REPORT TO ONCOMING DAYSHIFT RN.
[2024-04-11 05:15] LABS: Bun/Creatinine Ratio 70.7 (12.0-20.0); Calcium, Blood 10.1 mg/dL (8.5-10.1); Creatinine, Blood 1.16 mg/dL (0.40-1.00); Potassium, Blood 3.7 mmol/L (3.5-5.5)
[2024-04-11 07:52] VITALS: BP 98/62
[2024-04-11 09:33] VITALS: BP 111/57
[2024-04-11] MEDS ORDERED: Torsemide 20 MG TAB PO SCH (10:00)
[2024-04-11 12:15] VITALS: BP 100/54
[2024-04-11] MEDS ORDERED: Polyethylene Glycol 3350 17 gm PO PRN (16:10)
[2024-04-11 16:46] VITALS: BP 99/60
--- NOTE | 2024-04-11 18:14 | NUR ---
SHIFT SUMMARY PT IS A&0X4, PT IS ANXIOUS, BUT COOPERATIVE WITH CARES. VSS ON 5L NC AT REST, 7 L NC WITH ACTIVITIES OR AMBULATION. HR IS SR IN THE 60'S PER MONITOR. DENIES PAIN, BUT STATES SHE FEELS CONSTIPATED CAUSING HER DISCOMFORT. BOWEL MEDS ADMINISTERED PER EMAR. TOLERATING A CONS CARB DIET, ON A 1800 ML FLUID RESTRICTION. EDUCATED PT ON THE IMPORTANCE OF MAINTAINING HER F.R., REINFORCED T/O SHIFT. PT UP TO CHAIR FOR MEALS. AMBULATED TO DOOR WITH X1 ASSIST AND FWW. BARCENAS CATHETER DC'D AT 1656, DUE TO VOID. NO BM THIS SHIFT. BRIEF IN PLACE, PT STATES SHE HAS AN OVER ACTIVE BLADDER. BED IN LOWEST POSITION, CALL LIGHT WITHIN REACH.
[2024-04-11 20:50] VITALS: BP 106/58
--- NOTE | 2024-04-11 22:53 | NUR ---
START OF SHIFT THIS RN ASSUMED CARE AT APPROXIMATELY 1900. PT WAS RESTING IN BED ON 7L NC SAT ABOVE 90%. PT PLEASANT AND APPROPRIATE. EDUCATION GIVEN TO PT REGARDING CLINICAL APPEARANCE VS MONITOR NUMBERS TO HELP EASE PT ANXIETY. NO OTHER COMPLAINTS AT THIS TIME. WILL CONTINUE PLAN OF CARE.
[2024-04-12 00:02] VITALS: BP 134/68
[2024-04-12 03:53] VITALS: BP 128/70
--- NOTE | 2024-04-12 04:40 | NUR ---
SHIFT SUMMARY PT REMAINS AOX4 LAYING IN BED. PT HR REMAINED 50-60'S THROUGHOUT THE NIGHT IN NSR. PT ON 3L ON OXY MASK SAT ABOVE 88%. NO ACUTE EVENTS OVER NIGHT. WILL CONTINUE PLAN OF CARE.
[2024-04-12 05:25] LABS: Bun/Creatinine Ratio 81.6 (12.0-20.0); Calcium, Blood 10.5 mg/dL (8.5-10.1); Creatinine, Blood 1.25 mg/dL (0.40-1.00); Magnesium, Blood 2.9 mg/dL (1.6-2.4); Potassium, Blood 4.1 mmol/L (3.5-5.5)
[2024-04-12 07:40] VITALS: BP 162/108
[2024-04-12] MEDS ORDERED: Atorvastatin 40 MG Tab PO SCH (09:00)
--- NOTE | 2024-04-12 16:04 | NUR ---
PT TRANSFERRED TO MEDICAL FLOOR 339, REPORT GIVEN TO MEDICAL FLOOR NURSE. PT LEFT WITH ALL BELONGINGS ON HOSPITAL BED SATTING ABOVE 90%, BUMPED UP TO 7L NC.
[2024-04-12 16:13] VITALS: BP 108/70
--- NOTE | 2024-04-12 16:31 | NUR ---
TRANSFER SUMMARY: PT AOX4, NOT QUITE SURE SHES BEEN TRANSFERED. ANXIOUS ABOUT RETURNING TO [facility]. IS ON 5L OF OXYGEN. HAS HAD 805ML PER EMR. PT TRADED BEDS. NO OPEN WOUNDS. RE ORIENTED TO ROOM AND FAMILY INFORMED OF NEW ROOM. BED IN LOWEST POSITION CALL LIGHT IN REACH.
--- NOTE | 2024-04-12 17:28 | NUR ---
SHIFT SUMMARY: PT TRANSFERED FROM PCU. ON 5L OF O2 SATTING IN THE LOW MID 90S. PT PLEASANT MOOD AND AFFECT BUT ANXIOUS ABOUT DISCHARGE AND CERTAIN BELONGINGS. SEEMS TO GET STUCK ON CERTAIN DETAILS AND GETS EXTREMLY ANXIOUS OVER THEM. SOMETIMES REDIRECTABLE. AOX4 AND ORIENTED TO ROOM AND CALL LIGHT. CALLS APPROPRIATELY. PT RESTING IN BED, BED IN LOWEST POSITION, CALL LIGHT IN REACH. CONTINUING CARE.
[2024-04-12 20:03] VITALS: BP 112/63
[2024-04-12] MEDS ORDERED: BusPIRone HCl 10 MG Tab PO SCH (21:00)
[2024-04-13 03:07] VITALS: BP 123/46
--- NOTE | 2024-04-13 04:37 | NUR ---
SHIFT SUMMARY PT ALERT ORIENTED ABLE TO VERBALIZE NEEDS. SHE HAS A PUREWICK IN PLACE AND GETS VERY SOB WITH ANY EXERTION. REMAINS ON 5-6L O2 VIA NC. SHE DESATS WHEN SHES SLEEPING AND REQUIRED TO BE TURNED UP ON HER O2. NO C/O PAIN THIS SHIFT. SHE REMAINS ON 1800 FLUID RESTRICTION AND A STRICT I&O. SHES ALSO A DAILY WEIGHT. SHE CONTINUES ON A CONTINUOUS PULSE OX. SHE HAS A POWER GLIDE TO HER LT UPPER ARM THAT IS SL. FS DONE AC AND HS WAS 312 AND SHE GOT COVERAGE FOR IT. SHE HAD A HARD TIME FALLING ASLEEP SO SHE WAS GIVEN TRAZODONE AND TYLENOL PM WITH GOOD RELIEF. SHES RESTING IN BED AT THIS TIME WITH CALL LIGHT IN REACH
[2024-04-13 06:40] LABS: Base Excess Venous 13.2 mmol/L; Bicarbonate Venous 34.3 mmol/L (24.0-30.0); PCO2 Venous 45.3 mmHg (38-42); pH Blood Venous 7.51 (7.34-7.37)
[2024-04-13 06:49] LABS: Hematocrit 46.4 % (33.0-51.0); Hemoglobin 15.1 g/dL (11.5-16.0); Mean Corpuscular HGB 30.4 pg (26.0-34.0); Mean Corpuscular HGB Conc 32.5 g/dL (31.5-36.5); Mean Corpuscular Volume 93 fL (80-100); Mean Platelet Volume 11.4 fL (9.1-12.4); Platelet Count 360 K/mm3 (150-400); RDW Coefficient Variation 14.1 % (11.7-14.2); RDW Standard Deviation 48.3 fL (35.1-46.3); Red Blood Cell Count 4.97 M/mm3 (3.80-5.20); White Blood Cell Count 15.74 K/mm3 (4.00-11.30)
[2024-04-13 07:34] LABS: Anion Gap 12 mmol/L (3-11); Blood Urea Nitrogen 95 mg/dL (8-24); Bun/Creatinine Ratio 81.9 (12.0-20.0); CO2, Blood 34 mmol/L (21-32); Calcium, Blood 10.5 mg/dL (8.5-10.1); Chloride, Blood 97 mmol/L (98-108); Creatinine, Blood 1.16 mg/dL (0.40-1.00); Glomerular Filtration Rate 48 (60-); Glucose, Blood 99 mg/dL (70-99); Potassium, Blood 3.8 mmol/L (3.5-5.5); Sodium, Blood 139 mmol/L (136-145)
[2024-04-13 07:45] VITALS: BP 120/61
[2024-04-13 15:56] LABS: CORONAVIRUS COVID-19 AG Positive (NEGATIVE)
[2024-04-13 16:15] VITALS: BP 110/64
[2024-04-13 17:26] LABS: SARS-Cov-2 (COVID-19) PCR, MMC NEGATIVE (NEGATIVE)
--- NOTE | 2024-04-13 18:18 | NUR ---
SHIFT SUMMARY: PATIENT A/OX4, ANXIOUS AT TIMES. DENIES CP/PRESSURE, DIZZINESS AND N/V. PATIENT ON CONTINUES PULSE OX, 5-6L O2 SATTING 88-97%, REPORTS SOB c EXCERTION. PATIENT DISCHARGE TO [facility] PENDING D/T COVID RAPID TESTING CAME BACK POSITIVE. PATIENT SECOND COVID SWAB TESTING CAME BACK NEGATIVE. KATHRYN, RN-GRAPE GROWER AND DR. SILVERMAN NOTIFIED. PER KATHRYN, PATIENT STAYING OVER THE WEEKEND AND REASSES ON MONDAY. PATIENT RECEIVED SCHEDULED MEDS PER EMAR. VITAL SIGNS REVIEWED. CALL LIGHT IN REACH.
[2024-04-13 20:27] VITALS: BP 88/56
[2024-04-13 20:39] VITALS: BP 127/56
[2024-04-14 03:38] VITALS: BP 104/62
--- NOTE | 2024-04-14 04:37 | NUR ---
SHIFT SUMMARY PT ALERT ORIENTED ABLE TO VERBALIZE NEEDS. SHES BEEN INCONTINENT OF URINE THIS SHIFT AND REFUSES TO GET UP TO USE THE COMMODE. SHE WAS HAVING A HARD TIME FALLING ASLEEP AND WAS GIVEN TYLENOL PM AND TRAZADONE WHICH HELPED HER WITH HER ANXIETY AND SLEEPING. SHE CONTINUES ON STRICT I7O DAILY WEIGHT AND A 1800 ML FLUID RESTRICTION. FS DONE AC AND HS WAS 334. SHE CONTINUES ON O2 BETWEEN 5-7 TO MAINTAIN HER SATS BETWEEN 88-92%. SHE HAS A POWER GLIDE TO HER LT UPPER ARM THAT WONT DRAW BLOOD. SHE WAS DUE TO BE DISCHARGED YESTERDAY BUT HAD A POSITIVE COVID TEST. SHES RESTING IN BED AT THIS TIME WITH CALL LIGHT IN REACH
[2024-04-14 07:28] VITALS: BP 105/58
[2024-04-14 08:32] VITALS: BP 102/58
[2024-04-14 16:27] VITALS: BP 99/45
--- NOTE | 2024-04-14 18:10 | NUR ---
SHIFT SUMMARY: PATIENT A/OX4, ANXIOUS AT TIMES AND COOPERATIVE c CARE. PATIENT DENIES CP/PRESSURE, N/V AND DIZZINESS. PATIENT BP SOFT, HR IN THE MID 50'S TO LOW 60'S BPM, SCHEDULED LISINOPRIL AND METOPROLOL NOT GIVEN, DR. SILVERMAN IS AWARE OF THIS ISSUE. PATIENT SAT UP IN THE RECLINER CHAIR FOR ABOUT 6 HRS THIS SHIFT, TOLERATING WELL. PATIENT STILL ON 5-6 L O2, SATTING 88-93%. PATIENT HAS GREAT APPETITE, CONTINENT/INCONTINENT OF BLADDER AND CONTINENT OF BOWELS. PATIENT HAD 1 BM THIS SHIFT. VITAL SIGNS REVIEWED. CALL LIGHT IN REACH.
[2024-04-14 19:41] VITALS: BP 94/45
[2024-04-15 03:02] VITALS: BP 129/74
--- NOTE | 2024-04-15 03:29 | NUR ---
SHIFT SUMMARY PT ALERT ORIENTED X 4 ABLE TO VERBALIZE NEEDS REMAINS ON A 1800ML FLUID RESTRICTION AND DAILY WEIGHTS. REMAINS ON O2 AT 5-7L NO C/O SOB AT THIS TIME. SHE HAS NO IV. FS DONE AC AND HS WAS 254. CONTINUES ON CONTINUOUS PULSE OX SATTING WELL AT 95%. HER BP WAS 94/45 SO METOPROLOL WAS HELD. SHE WAS HAVING A HARD TIME FALLING ASLEEP SO SHE TOOK TRAZADONE AND TYLENOL PM. SHES PENDING DC TO [facility]ER SHES BEEN INC OF URINE THIS SHIFT. NO C/O CHEST PAIN SLEEPING AT THIS TIME WITH CALL LIGHT IN REACH
[2024-04-15 07:20] VITALS: BP 116/53
[2024-04-15] MEDS ORDERED: Metoprolol Succinate 25 MG TABCR PO SCH (09:00)
[2024-04-15] MEDS ORDERED: TraZODone HCl 50 MG Tab PO PRN (15:15)
[2024-04-15 15:24] VITALS: BP 126/54
--- NOTE | 2024-04-15 17:14 | NUR ---
PATIENT A/OX4, UP WITH FWW AND 1PA TO CHAIR TODAY. ANXIOUS AT TIMES, CALMS WITH CONVERSATION. 5LO2 TO MAINTAIN SATS. NO NEW CONCERNS THIS SHIFT. PLAN IS TO DC TO [facility] TOMORROW.
[2024-04-15 19:18] VITALS: BP 129/61
[2024-04-16 05:15] VITALS: BP 125/54
[2024-04-16 05:44] LABS: Hemoglobin 13.4 g/dL (11.5-16.0); Mean Corpuscular HGB 30.4 pg (26.0-34.0); Mean Corpuscular HGB Conc 32.7 g/dL (31.5-36.5); Mean Corpuscular Volume 93 fL (80-100); Mean Platelet Volume 11.6 fL (9.1-12.4); Platelet Count 254 K/mm3 (150-400); RDW Standard Deviation 48.6 fL (35.1-46.3); Red Blood Cell Count 4.41 M/mm3 (3.80-5.20); White Blood Cell Count 14.67 K/mm3 (4.00-11.30)
[2024-04-16 06:05] LABS: Albumin, Blood 2.8 g/dL (3.4-5.0); Anion Gap 10 mmol/L (3-11); Blood Urea Nitrogen 69 mg/dL (8-24); Bun/Creatinine Ratio 70.8 (12.0-20.0); CO2, Blood 30 mmol/L (21-32); Calcium, Blood 10.4 mg/dL (8.5-10.1); Chloride, Blood 103 mmol/L (98-108); Creatinine, Blood 0.98 mg/dL (0.40-1.00); Glomerular Filtration Rate 59 (60-); Glucose, Blood 155 mg/dL (70-99); Magnesium, Blood 2.4 mg/dL (1.6-2.4); Phosphorus, Blood 3.3 mg/dL (2.5-4.9); Sodium, Blood 139 mmol/L (136-145)
--- NOTE | 2024-04-16 06:06 | NUR ---
SHIFT SUMMARY PT WAS ANXIOUS AT THE BEGINNING OF THE SHIFT,FELL ASLEEP AFTER RECEIVING PRN TRAZODONE.NO OTHER CHANGES IN ASSESSMENT NOTED.PT ON 5L OF OXYGEN ALL NIGHT.PT DENIES PAIN,DENIES NEEDS AT THIS TIME.WILL CONTINUE TO MONITOR.
[2024-04-16 07:33] VITALS: BP 112/64
[2024-04-16] MEDS ORDERED: PredniSONE 20 MG Tab PO SCH (09:00)
[2024-04-16 09:18] LABS: CORONAVIRUS COVID-19 AG Negative (NEGATIVE); INFLUENZA A AG Negative (NEGATIVE); INFLUENZA B AG Negative (NEGATIVE)
[2024-04-16] MEDS ORDERED: METO25ER PO (12:54)
[2024-04-16] MEDS ORDERED: PRED20 PO (12:54)
[2024-04-16] MEDS ORDERED: Buspirone HCl15 MG PO (13:00)
[2024-04-16] MEDS ORDERED: INSULANPEN SC (13:01)
[2024-04-16] MEDS ORDERED: HUMALOG KW100 UNIT/1 SC (13:02)
[2024-04-16] MEDS ORDERED: DULERA 200 MCG-13 GM INH (13:03)
[2024-04-16] MEDS ORDERED: TORSE20 PO (13:04)
--- NOTE | 2024-04-16 15:14 | NUR ---
[facility], REPORTS CALLED TO SEPTEMBER. DC PACKET SENT WITH RECORDIST. BELONGINGS PACKED UP AND SENT WITH PATIENT. PATIENT WAS UNDER THE IMPRESSION SHE WAS GOING TO [facility], CLARIFIED WITH DELINQUENT TAX COLLECTOR BRADEN AND [facility] WAS NOT ABLE TO TAKE PATIENT.
== END 2024-04-16 14:40 | DRG 871 ==
LOC: ER 07:53 → PCU 09:48 → MEDS 04-12 16:22 → ENPENDDIS 04-13 15:29 → MEDS 04-16 14:40
PROVIDERS: Internal Medicine; Physician Assistant; ADMIT Hospitalist
PROC: 5A09457 Assistance with Respiratory Ventilation, 24-96 Consecutive Hours, Continuous Positive Airway Pressure (ICD-10-PCS; principal; 2024-04-04)
PROC: 0T9B70Z Drainage of Bladder with Drainage Device, Via Natural or Artificial Opening (ICD-10-PCS; 2024-04-04)
PROC: 3E03329 Introduction of Other Anti-infective into Peripheral Vein, Percutaneous Approach (ICD-10-PCS; 2024-04-04)
PROC: 5A0955A Assistance with Respiratory Ventilation, Greater than 96 Consecutive Hours, High Flow/Velocity Cannula (ICD-10-PCS; 2024-04-05)
DX: A41.9 Sepsis, unspecified organism (principal); I50.33 Acute on chronic diastolic (congestive) heart failure; J96.01 Acute respiratory failure with hypoxia; J96.21 Acute and chronic respiratory failure with hypoxia; J44.1 Chronic obstructive pulmonary disease with (acute) exacerbation; C34.91 Malignant neoplasm of unspecified part of right bronchus or lung; E66.2 Morbid (severe) obesity with alveolar hypoventilation; I27.20 Pulmonary hypertension, unspecified; E11.9 Type 2 diabetes mellitus without complications; M54.9 Dorsalgia, unspecified; Z90.2 Acquired absence of lung [part of]; J43.9 Emphysema, unspecified; Z88.8 Allergy status to other drugs, medicaments and biological substances; R65.20 Severe sepsis without septic shock; F32.A Depression, unspecified; I11.0 Hypertensive heart disease with heart failure; Z91.040 Latex allergy status; Z79.02 Long term (current) use of antithrombotics/antiplatelets; Z79.2 Long term (current) use of antibiotics; Z79.899 Other long term (current) drug therapy; I25.10 Atherosclerotic heart disease of native coronary artery without angina pectoris; Z95.5 Presence of coronary angioplasty implant and graft; K22.70 Barrett's esophagus without dysplasia; K20.90 Esophagitis, unspecified without bleeding; Z87.81 Personal history of (healed) traumatic fracture; Z90.89 Acquired absence of other organs; Z98.890 Other specified postprocedural states; Z90.710 Acquired absence of both cervix and uterus; Z87.440 Personal history of urinary (tract) infections; Z90.11 Acquired absence of right breast and nipple; Z87.891 Personal history of nicotine dependence; E87.6 Hypokalemia
CPT/HCPCS: 0202U; 36415; 51702; 71045; 71275; 72110; 80048; 80053; 80069; 81001; 82803; 82947; 83605; 83735; 83880; 84100; 84484; 85014; 85018; 85025; 85027; 87426-QW; 87428-QW; 93005; 93010; 93306; 94640; 94660; 94664; 94762; 96365-59; 96375-59; 97110; 97110-CQ; 97116; 97162; 97530; 99285-25; A9270; J0456; J0696; J1650; J1815; J1940; J2919; J7050; J7512; Q9967; U0002

== ENCOUNTER 2024-05-21 13:39 | Inpatient (IN) | payer MEDICARE, BC ==
[~2024-05-21] VITALS: Ht 165.1 cm; Wt 105.9 kg
[~2024-05-21 13:39] MED LIST changes: +Buspirone HCl15 MG PO; +DULERA 200 MCG-13 GM INH; +HUMALOG KW100 UNIT/1 SC; +INSULANPEN SC; +LISI5 PO; +METO25ER PO; +PRED20 PO; +TORSE20 PO
[2024-05-21 14:23] LABS: BASOPHILS ABSOLUTE AUTO 0.08 K/mm3 (0.00-0.23); BASOPHILS PERCENT AUTO 1 % (0-2); EOSINOPHILS ABSOLUTE AUTO 0.19 K/mm3 (0.00-0.68); EOSINOPHILS PERCENT AUTO 2 % (0-6); Hematocrit 40.2 % (33.0-51.0); IMMATURE GRAN ABSOLUTE AUTO 0.04 K/mm3 (0.00-0.10); IMMATURE GRAN PERCENT AUTO 0 % (0-1); LYMPHOCYTES ABSOLUTE AUTO 2.37 K/mm3 (0.84-5.20); LYMPHOCYTES PERCENT AUTO 25 % (21-46); MONOCYTES PERCENT AUTO 6 % (4-13); Mean Corpuscular HGB 30.1 pg (26.0-34.0); Mean Corpuscular HGB Conc 32.3 g/dL (31.5-36.5); Mean Corpuscular Volume 93 fL (80-100); Mean Platelet Volume 11.2 fL (9.1-12.4); NEUTROPHILS ABSOLUTE AUTO 6.29 K/mm3 (1.96-9.15); NEUTROPHILS PERCENT AUTO 66 % (41-73); Platelet Count 248 K/mm3 (150-400); RDW Coefficient Variation 15.9 % (11.7-14.2); RDW Standard Deviation 54.3 fL (35.1-46.3); Red Blood Cell Count 4.32 M/mm3 (3.80-5.20); White Blood Cell Count 9.57 K/mm3 (4.00-11.30)
[2024-05-21 14:49] LABS: Albumin, Blood 3.2 g/dL (3.4-5.0); Bilirubin, Total 0.8 mg/dL (0.1-1.0); Bun/Creatinine Ratio 27.7 (12.0-20.0); Calcium, Blood 9.8 mg/dL (8.5-10.1); Creatinine, Blood 0.72 mg/dL (0.40-1.00); Globulin, Blood 3.3 g/dL (2.2-4.0); Potassium, Blood 3.6 mmol/L (3.5-5.5); Total Protein, Blood 6.5 g/dL (6.4-8.2)
[2024-05-21 15:17] LABS: Influenza A, PCR NEGATIVE (NEGATIVE); Influenza B, PCR NEGATIVE (NEGATIVE); Resp Syncytial Virus, PCR NEGATIVE (NEGATIVE); SARS-Cov-2 (COVID-19) PCR, MMC NEGATIVE (NEGATIVE)
[2024-05-21] MEDS ORDERED: Albuterol 2.5 MG/3 ML VIAL INH SCH (16:35)
[2024-05-21] MEDS ORDERED: MethylPREDNISolone Sod Succ 125 MG Vial IV ONE (16:35)
[2024-05-21] MEDS ORDERED: Azithromycin 250 MG Tab PO ONE (17:25)
[2024-05-21] MEDS ORDERED: Prednisone20 MG PO (17:25)
[2024-05-21] MEDS ORDERED: AZIT250 PO (17:25)
[2024-05-21 18:52] LABS: Source, Urine Fem Cath
[2024-05-21 18:55] LABS: Appearance, Urine Clear (Clear); Bilirubin, Urine Neg (Neg); Blood, Urine Neg (Neg); Color, Urine Yellow (P-Yellow); Glucose Qualitative, Urine Neg (Neg); Ketones, Urine Neg (Neg); Leukocyte Esterase, Urine 3+ (Neg); Nitrite, Urine Neg (Neg); Protein, Urine Neg (Neg); Urobilinogen, Urine NORM (Normal)
[2024-05-21 19:02] LABS: Bacteria Few /hpf; Red Blood Cells, Urine 0-2 /hpf (0-2); Squamous Epithelial Cells Few /hpf (Few); White Blood Cells, Urine 25-50 /hpf (0-5); Yeast/Fungi Urine Few /hpf
[2024-05-21] MEDS ORDERED: NS 1,000 ML IV SCH ×2 (21:40→22:35)
[2024-05-21] MEDS ORDERED: FLU VACC TS2024-25(6MOS UP)/PF 45 MCG/0.5 ML SYRINGE IM ONE ×2 (21:45)
[2024-05-21] MEDS ORDERED: Ondansetron HCl 2 MG / ML 2ML Vial IV PRN ×2 (21:45→22:35)
[2024-05-21] MEDS ORDERED: Albuterol 2.5 MG/3 ML VIAL INH PRN ×2 (21:45→22:35)
[2024-05-21] MEDS ORDERED: NS 500 ML IV ONE ×2 (21:50)
[2024-05-21] MEDS ORDERED: TraZODone HCl 100 MG Tab PO PRN ×2 (21:50→22:35)
[2024-05-21] MEDS ORDERED: CefTRIAXone Sodium 1,000 MG in NS 100 ML IV SCH (22:52)
[2024-05-21] MEDS ORDERED: Azithromycin 500 MG in NS 250 ML IV SCH (22:54)
[2024-05-21 23:06] VITALS: BP 101/77
[2024-05-21] MEDS ORDERED: ARTIFICIAL TEAR15 M2 BOTHEYES (23:38)
[2024-05-21] MEDS ORDERED: MIRALAX17 GM PO (23:40)
[2024-05-21] MEDS ORDERED: Mometasone/Formoterol MDI 200/5 mcg 13 GM INH SCH (23:40)
[2024-05-21] MEDS ORDERED: Oxybutynin Chlo10 MG PO (23:41)
[2024-05-21] MEDS ORDERED: Calcium Carbon500 MG PO (23:42)
[2024-05-22] VITALS (8 sets, daily range): BP systolic 97–151; BP diastolic 58–114
[2024-05-22 00:05] LABS: Adenovirus Not Detected (NOT DETECT); Bordetella pertussis Not Detected (NOT DETECT); Chlamydophila pneumoniae Not Detected (NOT DETECT); Coronavirus 229E Not Detected (NOT DETECT); Coronavirus HKU1 Not Detected (NOT DETECT); Coronavirus NL63 Not Detected (NOT DETECT); Coronavirus OC43 Not Detected (NOT DETECT); Human Metapneumovirus Not Detected (NOT DETECT); Human Rhinovirus/Enterovirus Not Detected (NOT DETECT); Influenza A/2009-H1 Not Detected (NOT DETECT); Influenza A/H1 Not Detected (NOT DETECT); Influenza A/H3 Not Detected (NOT DETECT); Influenza B Not Detected (NOT DETECT); Mycoplasma pneumoniae Not Detected (NOT DETECT); Parainfluenza Virus 1 Not Detected (NOT DETECT); Parainfluenza Virus 2 Not Detected (NOT DETECT); Parainfluenza Virus 3 Not Detected (NOT DETECT); Parainfluenza Virus 4 Not Detected (NOT DETECT); Respiratory Syncytial Virus Not Detected (NOT DETECT); SARS-Cov-2 (COVID-19), BioFire Not Detected (NOT DETECT)
[2024-05-22 04:46] LABS: Hematocrit 38.7 % (33.0-51.0); Hemoglobin 12.5 g/dL (11.5-16.0); Mean Corpuscular HGB 29.8 pg (26.0-34.0); Mean Corpuscular HGB Conc 32.3 g/dL (31.5-36.5); Mean Corpuscular Volume 92 fL (80-100); Mean Platelet Volume 11.5 fL (9.1-12.4); Platelet Count 231 K/mm3 (150-400); RDW Coefficient Variation 15.8 % (11.7-14.2); RDW Standard Deviation 53.2 fL (35.1-46.3); Red Blood Cell Count 4.19 M/mm3 (3.80-5.20); White Blood Cell Count 9.33 K/mm3 (4.00-11.30)
--- NOTE | 2024-05-22 04:58 | NUR ---
SHIFT SUMMARY. SHIFT HAS GONE WELL OVERALL. PT ARRIVED ON UNIT AT ABOUT 2330 LAST NIGHT. HAS DENIED PAIN. VITALS HAVE BEEN STABLE. O2 DEMANDS HAVE DECREASED WHILE SLEEPING, STARTED ON 9-11 L O2 VIA NC AND HAS NOW DECREASED TO 5 L O2. RUNNING SINUS ON TELE. HAS BEEN ABLE TO REST COMFORTABLY THROUGHOUT SHIFT. ADMISSION PROCESS COMPLETED PER PROTOCOL. FLUIDS INFUSING THROUGHOUT SHIFT. BED LOCKED IN LOWEST POSITION. CALL [facility] WITHIN REACH.
[2024-05-22 05:04] LABS: Calcium, Blood 9.5 mg/dL (8.5-10.1); Creatinine, Blood 0.7 mg/dL (0.40-1.00); Magnesium, Blood 2.2 mg/dL (1.6-2.4)
[2024-05-22] MEDS ORDERED: Pantoprazole Sodium 40 MG Tab PO SCH ×2 (06:00)
[2024-05-22] MEDS ORDERED: Insulin Human Lispro 100 Units/ML 3ML Syringe SC SCH ×2 (07:30)
--- NOTE | 2024-05-22 07:38 | NUR ---
ASSUMPTION NOTE: THIS RN TO ASSUME CARE OF PATIENT. PATIENT IS SITTING UP IN BED AND TALKING WITH THE DOCTOR. VITAL SIGNS TAKEN AND IS STABLE. PATIENT HAS BED IN THE LOWEST POSITION AND CALL LIGHT WITHIN REACH.
[2024-05-22] MEDS ORDERED: Fluticasone 0.05% Nasal Spray SCH (09:00)
[2024-05-22] MEDS ORDERED: BusPIRone HCl 10 MG Tab PO SCH ×2 (09:00)
[2024-05-22] MEDS ORDERED: Clopidogrel Bisulfate 75 MG Tab PO SCH ×2 (09:00)
[2024-05-22] MEDS ORDERED: Lisinopril 5 MG Tab PO SCH (09:00)
[2024-05-22] MEDS ORDERED: Atorvastatin 40 MG Tab PO SCH ×2 (09:00)
[2024-05-22] MEDS ORDERED: FLUoxetine HCL 20 MG CAP PO SCH ×2 (09:00→10:00)
[2024-05-22] MEDS ORDERED: Enoxaparin 40 MG/0.4 ML SYR SC SCH ×2 (09:00)
[2024-05-22] MEDS ORDERED: Torsemide 20 MG TAB PO SCH (09:00)
[2024-05-22] MEDS ORDERED: AmLODIPine Besylate 5 MG Tab PO SCH (09:00)
[2024-05-22] MEDS ORDERED: Calcium Carbonate 500 MG Tab Chew PO PRN (09:05)
[2024-05-22] MEDS ORDERED: STIOLTO RESPIMAT INH SCH (09:15)
[2024-05-22] MEDS ORDERED: Metoprolol Succinate 50 MG TABCR PO SCH (09:30)
[2024-05-22] MEDS ORDERED: Polyethylene Glycol 3350 17 gm PO SCH ×2 (10:30→21:00)
[2024-05-22] MEDS ORDERED: Trospium Chloride 20 MG Tab PO SCH (11:30)
[2024-05-22] MEDS ORDERED: MethylPREDNISolone Sod Succ 125 MG Vial IV SCH (12:00)
--- NOTE | 2024-05-22 17:34 | NUR ---
SHIFT SUMMARY: PATIENT IS ALERT AND ORIENTED X4 AND ACTIVE IN HER CARE. IS ON TELE SHOWING SINUS RYTHM WITH RATE IN 90'S. SATTING >92% ON HEATED HIGH FLOW NASAL CANNULA BETWEEN 5-13. PATIENT GETS DYSPENIC AND SHORT OF BREATH, DESATS INTO THE 80'S WHEN GETTING TO THE BEDSIDE COMMODE OR EVEN ADJUSTING IN BED. PATIENT WORKED WITH PHYISCAL THERAPY AND DID WELL. STEROIDS WAS ADDED TO EMAR AND PLAN IS TO CONTINUE TO TREAT THE INFECTION, CONTINUE STEROIDS AND CONTINUE TO WEAN PATIENT OFF OXYGEN. SON WAS AT BEDSIDE THORUGHOUT SHIFT. THIS RN WILL CONTINUE TO MONITOR PATIENT UNTIL SHIFT CHANGE WHEN DOPE MAINTENANCE WORKER RN WILL TAKE OVER CARE.
[2024-05-22] MEDS ORDERED: Insulin Glargine-Yfgn 100 Unit/mL 3 ML SYR SC SCH ×2 (21:00)
[2024-05-23] VITALS (7 sets, daily range): BP systolic 103–138; BP diastolic 57–93
[2024-05-23 05:02] LABS: BASOPHILS ABSOLUTE AUTO 0.02 K/mm3 (0.00-0.23); BASOPHILS PERCENT AUTO 0 % (0-2); EOSINOPHILS PERCENT AUTO 0 % (0-6); Hematocrit 39.6 % (33.0-51.0); Hemoglobin 12.8 g/dL (11.5-16.0); IMMATURE GRAN ABSOLUTE AUTO 0.11 K/mm3 (0.00-0.10); IMMATURE GRAN PERCENT AUTO 1 % (0-1); LYMPHOCYTES ABSOLUTE AUTO 1.08 K/mm3 (0.84-5.20); LYMPHOCYTES PERCENT AUTO 6 % (21-46); MONOCYTES PERCENT AUTO 3 % (4-13); Mean Corpuscular HGB 30.4 pg (26.0-34.0); Mean Corpuscular HGB Conc 32.3 g/dL (31.5-36.5); Mean Corpuscular Volume 94 fL (80-100); Mean Platelet Volume 11.6 fL (9.1-12.4); NEUTROPHILS ABSOLUTE AUTO 16.46 K/mm3 (1.96-9.15); NEUTROPHILS PERCENT AUTO 90 % (41-73); Platelet Count 252 K/mm3 (150-400); RDW Coefficient Variation 15.9 % (11.7-14.2); RDW Standard Deviation 54.3 fL (35.1-46.3); Red Blood Cell Count 4.21 M/mm3 (3.80-5.20); White Blood Cell Count 18.27 K/mm3 (4.00-11.30)
[2024-05-23 05:33] LABS: Bun/Creatinine Ratio 39.7 (12.0-20.0); Calcium, Blood 9.6 mg/dL (8.5-10.1); Creatinine, Blood 0.71 mg/dL (0.40-1.00); Potassium, Blood 4.9 mmol/L (3.5-5.5)
--- NOTE | 2024-05-23 05:37 | NUR ---
SHIFT SUMMARY ASSUMED CARE OF PT AT APPROX 1900. PT A&O4, COOPERATIVE IN CARE AND ABLE TO EXPRESS NEEDS. PT OVERNIGHT VERY ANXIOUS ABOUT O2 SATURATION LEVEL. PT WOULD DSAT TO THE LOW 80S ON EXERTION BUT SUCCESSFUL COME BACK UP. PT DISPLAYED GOOD BREATHING TECHNIQUES TO RECOOPERATE. VSS OVERNIGHT. PT DENIES CP/PRESSURE. BED IN LOWEST POSITION AND CALL LIGHT WITHIN REACH.
--- NOTE | 2024-05-23 07:28 | NUR ---
ASSUMPTION NOTE: THIS RN TO ASSUME CARE OF PATIENT. PATIENT IN BED AND TALKING ON THE PHONE. VITAL SIGNS TAKEN AND PATIENT IS STABLE. PATIENT MENTIONED MEDICAL STUDENT CAME IN AND TALKED TO PATIENT ABOUT CONSULTING HER PULMONOLIGIST TODAY AND CONTINUE WITH THE COURSE OF ANITBIOTICS AND STEROIDS. WILL CONTINUE TO MONITOR PATIENT THROUGHOUT SHIFT. HAS THE BED AT THE LOWEST POSITION AND CALL LIGHT WITHIN REACH.
[2024-05-23] MEDS ORDERED: Ipratropium/Albuterol SulF 2.5-0.5MG/3 ML Amp INH SCH (08:25)
--- NOTE | 2024-05-23 09:00 | NUR ---
MD RESIDENT AT BEDSIDE AND SPOKE WITH PATIENT. PATIENT AWARE THAT THEY WILL BE TALKING TO PULMNOLOGIST TODAY AND DISCHARGE WILL BE WITHIN A COUPLE DAYS BACK TO [facility] THERAPIES ARE RECCOMENDING. A HOME O2 EVAULATION WILL BE COMPLETED PRIOR TO LEAVING.
--- NOTE | 2024-05-23 10:16 | NUR ---
PATIENT WAS SEEN BY THERAPY AND THERAPIST STATED SHE DID WELL. SHE DID DESATURATE WITH MOVEMENTS BUT OVERALL DID WELL.
[2024-05-23] MEDS ORDERED: Acetaminophen 325 MG TABLET PO PRN (10:35)
--- NOTE | 2024-05-23 10:47 | NUR ---
PATIENT COMPLAINTED ABOUT A 5/10 HEADACHE AND TYLENOL WAS ADDED TO THE EMAR. PATIENT GIVEN TYLENOL AND PATIENT CHATTING WITH FAMILY IN THE CHAIR. HAS CALL LIGHT WITHIN REACH. WILL CHECK BACK IN PATIENT PAIN.
--- NOTE | 2024-05-23 14:38 | NUR ---
md called this rn called md regarding the patient wanting to speak to her and asking as family is waiting to hear updates from md as well. md stated she would be around when able.
--- NOTE | 2024-05-23 18:06 | NUR ---
call placed to md: this rn called md regarding patient not having a bowel movement today. patient is very anxious as she typically has a bowel movement every day and has not had one despite having miralax & a brown cow. md to place orders.
[2024-05-23] MEDS ORDERED: Docusate Sodium/Senna 1 Tab PO SCH ×2 (18:35→18:45)
[2024-05-23] MEDS ORDERED: Polyethylene Glycol 3350 17 gm PO SCH (19:00)
[2024-05-24 04:18] VITALS: BP 139/73
--- NOTE | 2024-05-24 06:24 | NUR ---
SHIFT SUMMARY ASSUMED CARE OF PT AT APPROX 1900. PT A&O4, COOPERATIVE IN CARE AND ABLE TO EXPRESS NEEDS. PT DENIES CP/PRESSURE AND BECOMES SOB ON EXERTION. PT AWARE HOW TO MANAGE BREATHING DYSNEA WITH GOOD BREATHING TECHNIQUES BUT DOES BECOME FIXATED ON O2 SATURATION PERCENTAGE ON MONITOR. DURING MED PASS, PT REFUSED MIRALAX D/T RECIEVING OTHER MEDS FOR CONSTIPATION T/O THE DAY. NO REPORTED BM OVERNIGHT. PT'S BED IN LOWEST POSITION AND CALL LIGHT MADDIE HOGUE.
[2024-05-24 06:31] LABS: BASOPHILS ABSOLUTE AUTO 0.01 K/mm3 (0.00-0.23); BASOPHILS PERCENT AUTO 0 % (0-2); EOSINOPHILS PERCENT AUTO 0 % (0-6); Hematocrit 41.7 % (33.0-51.0); Hemoglobin 13.2 g/dL (11.5-16.0); IMMATURE GRAN ABSOLUTE AUTO 0.09 K/mm3 (0.00-0.10); IMMATURE GRAN PERCENT AUTO 1 % (0-1); LYMPHOCYTES ABSOLUTE AUTO 0.71 K/mm3 (0.84-5.20); LYMPHOCYTES PERCENT AUTO 5 % (21-46); MONOCYTES ABSOLUTE AUTO 0.77 K/mm3 (0.16-1.47); MONOCYTES PERCENT AUTO 6 % (4-13); Mean Corpuscular HGB 30.2 pg (26.0-34.0); Mean Corpuscular HGB Conc 31.7 g/dL (31.5-36.5); Mean Corpuscular Volume 95 fL (80-100); Mean Platelet Volume 11.5 fL (9.1-12.4); NEUTROPHILS ABSOLUTE AUTO 12.44 K/mm3 (1.96-9.15); NEUTROPHILS PERCENT AUTO 89 % (41-73); Platelet Count 240 K/mm3 (150-400); RDW Coefficient Variation 15.5 % (11.7-14.2); RDW Standard Deviation 54.4 fL (35.1-46.3); Red Blood Cell Count 4.37 M/mm3 (3.80-5.20); White Blood Cell Count 14.02 K/mm3 (4.00-11.30)
[2024-05-24 06:49] LABS: Bun/Creatinine Ratio 38.6 (12.0-20.0); Calcium, Blood 9.7 mg/dL (8.5-10.1); Creatinine, Blood 0.78 mg/dL (0.40-1.00); Potassium, Blood 4.9 mmol/L (3.5-5.5)
--- NOTE | 2024-05-24 07:51 | NUR ---
ASSUMPTION NOTE: THIS RN TO ASSUME CARE OF PATIENT. MEDICAL STUDENT APART OF HER TEAM WAS AT BEDSIDE AND CHATTING ABOUT THE PLAN FOR TODAY. LOOKING AT POSSIBLE DISCHARGE BYT THE MD WILL BE IN CHARGE OF THAT. THIS RN AND HER SPOKE ABOUT NOT BEING ABLE TO HAVE A BOWEL MOVEMENT YET BUT THIS RN POINTED OUT TO PATIENT THAT SHE REFUSED HER MIRALAX LAST NIGHT AND THAT IS THERE FOR THAT REASON. PATIENT IS EATING BREAKFAST, VITAL SIGNS STABLE AND HAS BED IN THE LOWEST POSITION. CALL LIGHT WITHIN REACH.
[2024-05-24 07:53] VITALS: BP 136/103
[2024-05-24] MEDS ORDERED: Bisacodyl 10 MG Supp PR PRN (08:50)
--- NOTE | 2024-05-24 09:00 | NUR ---
RESIDENT AT BEDSIDE AND TALKED WITH PATIENT. PATIENT RELAYED THAT SHE STILL HAD NOT HAD A BOWEL MOVEMENT BUT THIS RN LET THE RESIDENT KNOW THAT PATIENT ALSO REFUSED HER MIRALAX PRIOR WHEN HYDROLOGY TECHNICIAN RN TRIED TO GIVE IT. RESIDENT PLACED AN ENEMA PRN ON PATIENTS EMAR. PATIENT IN BED WITH CALL LIGHT WITHIN REACH, AND BED AT LOWEST POSITION.
--- NOTE | 2024-05-24 10:00 | NUR ---
MD FAJARDO AT BEDSIDE TO CHAT WITH PATIENT AND SON. THEY WENT OVER PLAN OF DISCHARGE WITHIN A FEW DAYS AND PATIENT SET TO WORK WITH OT TODAY AND WE WILL SEE WHAT THEY RECCOMEND FOR DISCHARGE. PATIENT AWARE THAT SHE IS NOW MEDICAL STATUS AND WILL BE [facility] ONCE A ROOM IS AVAILABLE. PATIENT IN CHAIR, CALL LIGHT WITHIN REACH.
--- NOTE | 2024-05-24 11:58 | NUR ---
PALLIATIVE AT BEDSIDE. SON AND PATIENT REQUESTED TO SPEAK TO PALLIATIVE REGARDING SOME QUESTIONS AND AGENCYS FOR CARE ONCE DISCHARGED. PATIENT WORKED WITH OCCUPATIONAL THERAPY AND THEY RECCOMENDED PATIENT BE DISCHARGED WITH HOME HEALTH. PATIENT CONTINUES TO SIT IN CHAIR WITH CALL LIGHT WITHIN REACH.
[2024-05-24 16:11] VITALS: BP 104/78
--- NOTE | 2024-05-24 16:57 | NUR ---
PATIENT SPOKE WITH OUTSIDE PALLIATIVE CARE AND WAS PLEASED WITH THE CONVERSATION. WAS GIVEN RESOURCES AND THE PLAN WILL BE TO CONTINUE TO WORK WITH THEM WITH HER CHRONIC CONDIDITION OF COPD.
--- NOTE | 2024-05-24 17:07 | NUR ---
MET WITH PATIENT AND FAMILY. DISCUSSED BENIFITS OF PALLIATIVE CARE OUT PATIENT. LORELEI MET WITH FAMILY AND SHE WAS PLACED ON THEIR BRIDGE PROGRAM TO FOLLOW UP AFTER DISCHARGE.
--- NOTE | 2024-05-24 17:35 | NUR ---
SHIFT SUMMARY: PATIENT IS ALERT AND ORIENTED X4 AND ACTIVE IN HER CARE. IS ON TELE SHOWING SINUS RYHTHM WITH RATE IN THE 80'S. SATTING >92% ON 6 LITERS AT REST AND 10 LITERS WITH EXERTION. PATIENT SON WAS AT BEDSIDE MOST OF SHIFT. SEE PREVIOUS NOTES REGARDING PATIENT BEING SEEN WITH PALLIATIVE OUTPATIENT. PATIENT WORKED WITH OCCUPATIONAL THERAPY AND THE NEW RECCOMENDATION WILL BE TO DISCHARGE HOME WITH HOME HEALTH. IV MEDIACATIONS WERE CHANGED IN EMAR TO BY MOUTH. PATIENT WAS NOT ABLE TO HAVE A BOWEL MOVEMENT TODAY DESPITE HAVING MEDICATIONS IN EMAR. PATIENT WAS VERY ANXIOUS THAT SHE WAS STILL NOT ABLE TO AND AN ENEMA WAS ADDED TO THE EMAR. PATIENT DECLINED IT THE FIRST TIME IT WAS OFFERED AND STATED SHE WOULD WAIT JUST A WHILE LONGER. PATIENT WAS IN THE CHAIR MOST OF THE DAY AND WAS ABLE TO VISIT WITH FAMILY&FRIENDS. THIS RN WILL CONTINUE TO MONITOR UNTIL SHIFT CHANGE AND MACHINIST LINOTYPE RN TAKES OVER CARE.
[2024-05-24 17:58] VITALS: BP 127/83
--- NOTE | 2024-05-24 18:44 | NUR ---
TRANSFER SUMMARY: THIS RN CALLED RECEIVING RN TO GIVE REPORT OVER PHONE. PATIENT BELONGINGS WERE ALL PACKED UP AND PATIENT WILL TRAVEL VIA WHEELCHAIR AND BE TAKEN UP BY NURSE SENIOR IT BUSINESS ANALYST. THE PATIETN CALLED SON AND UPDATED HIM THAT SHE HAD A ROOM AND WOULD BE COMING SHORTLY. SEE SHIFT SUMMARY FOR FURTHER INFORMATION
--- NOTE | 2024-05-24 19:10 | NUR ---
PT TRANSFERED TO 355 FROM U 17. REPORT RECIEVED FROM DOREEN FORBES.
[2024-05-24 19:55] VITALS: BP 135/76
[2024-05-25 05:09] VITALS: BP 143/77
[2024-05-25 05:23] LABS: BASOPHILS ABSOLUTE AUTO 0.01 K/mm3 (0.00-0.23); BASOPHILS PERCENT AUTO 0 % (0-2); EOSINOPHILS PERCENT AUTO 0 % (0-6); Hematocrit 40.5 % (33.0-51.0); IMMATURE GRAN ABSOLUTE AUTO 0.07 K/mm3 (0.00-0.10); IMMATURE GRAN PERCENT AUTO 1 % (0-1); LYMPHOCYTES ABSOLUTE AUTO 1.36 K/mm3 (0.84-5.20); LYMPHOCYTES PERCENT AUTO 11 % (21-46); MONOCYTES ABSOLUTE AUTO 1.61 K/mm3 (0.16-1.47); MONOCYTES PERCENT AUTO 13 % (4-13); Mean Corpuscular HGB Conc 32.1 g/dL (31.5-36.5); Mean Corpuscular Volume 93 fL (80-100); Mean Platelet Volume 11.1 fL (9.1-12.4); NEUTROPHILS ABSOLUTE AUTO 9.31 K/mm3 (1.96-9.15); NEUTROPHILS PERCENT AUTO 75 % (41-73); Platelet Count 230 K/mm3 (150-400); RDW Coefficient Variation 15.6 % (11.7-14.2); RDW Standard Deviation 53.4 fL (35.1-46.3); Red Blood Cell Count 4.34 M/mm3 (3.80-5.20); White Blood Cell Count 12.36 K/mm3 (4.00-11.30)
[2024-05-25 05:56] LABS: Bun/Creatinine Ratio 38.6 (12.0-20.0); Calcium, Blood 9.9 mg/dL (8.5-10.1); Creatinine, Blood 0.67 mg/dL (0.40-1.00); Potassium, Blood 4.9 mmol/L (3.5-5.5)
--- NOTE | 2024-05-25 06:11 | NUR ---
SHIFT SUMMARY: Pt is admitted for PNA and is a full code. Is alert and able to make needs known. ADLs have been SBA. denies pain or discomfort when asked. On 4.5 -6lpm on via NC depending on activity to maintain SPO2 greater than 88%.
[2024-05-25 07:16] VITALS: BP 123/69
[2024-05-25] MEDS ORDERED: PredniSONE 20 MG Tab PO SCH (09:00)
[2024-05-25 15:56] VITALS: BP 118/55
--- NOTE | 2024-05-25 16:12 | NUR ---
SUMMARY NO ACUTE CHANGES THIS SHIFT. PT MAIN CONCERN IS CONSTIPATION, TREATING CONSTIPATION PER EMAR. PT REQUIRES 5-7L NC/FACE MASK AT REST AND 10L NC WITH AMBULATION. PT HAD SMALL BM THIS MORNING. ALERT AND ORIENTED X4, ABLE TO MAKE NEEDS KNOWN. SBA TO BSC.
[2024-05-25] MEDS ORDERED: Amoxicillin 500 MG Cap PO SCH (17:30)
[2024-05-25 19:30] VITALS: BP 107/53
[2024-05-25] MEDS ORDERED: NS 250 ML IV PRN (20:40)
[2024-05-25] MEDS ORDERED: Lactobacil 2-S.Thermo-Bifido 1 1 Cap PO SCH (21:00)
[2024-05-26 02:12] VITALS: BP 129/72
--- NOTE | 2024-05-26 03:12 | NUR ---
SHIFT SUMMARY NO ACUTE CHANGES DURING THIS SHIFT. O2 @6L VIA NASAL CANNULA, CONTINUOUS PULSE OXIMETER 94% @REST. DROPS DOWN TO LOW 80'S WITH EXERTION/TRANSFERRING TO COMMODE. PT TRANSFERS INDEPENDENTLY. PT IS ANXIOUS R/T O2 SAT NUMBERS, AND AGITATED D/T NOT GETTING ENOUGH SLEEP DURING HOSPITAL STAY, PER PT REPORT. PRN TRAZADONE ADMINISTERED AT HS. MIRALAX @HS, NO BM DURING THIS SHIFT. VOIDING WELL. A/O X4, ABLE TO MAKE HER NEEDS KNOWN AND COOPERATIVE WITH CARE. TYLENOL PO PRN ADMINISTERED FOR H/A. BED AT THE LOWEST POSITION, HOB>30 DEGREES. CALL LIGHT W/I REACH.
[2024-05-26 05:43] LABS: BASOPHILS ABSOLUTE AUTO 0.01 K/mm3 (0.00-0.23); BASOPHILS PERCENT AUTO 0 % (0-2); EOSINOPHILS ABSOLUTE AUTO 0.03 K/mm3 (0.00-0.68); EOSINOPHILS PERCENT AUTO 0 % (0-6); Hematocrit 39.2 % (33.0-51.0); Hemoglobin 12.7 g/dL (11.5-16.0); IMMATURE GRAN ABSOLUTE AUTO 0.07 K/mm3 (0.00-0.10); IMMATURE GRAN PERCENT AUTO 1 % (0-1); LYMPHOCYTES ABSOLUTE AUTO 1.39 K/mm3 (0.84-5.20); LYMPHOCYTES PERCENT AUTO 15 % (21-46); MONOCYTES ABSOLUTE AUTO 1.25 K/mm3 (0.16-1.47); MONOCYTES PERCENT AUTO 14 % (4-13); Mean Corpuscular HGB 30.4 pg (26.0-34.0); Mean Corpuscular HGB Conc 32.4 g/dL (31.5-36.5); Mean Corpuscular Volume 94 fL (80-100); Mean Platelet Volume 11.4 fL (9.1-12.4); NEUTROPHILS ABSOLUTE AUTO 6.41 K/mm3 (1.96-9.15); NEUTROPHILS PERCENT AUTO 70 % (41-73); Platelet Count 210 K/mm3 (150-400); RDW Coefficient Variation 15.5 % (11.7-14.2); Red Blood Cell Count 4.18 M/mm3 (3.80-5.20); White Blood Cell Count 9.16 K/mm3 (4.00-11.30)
[2024-05-26 06:03] LABS: Bun/Creatinine Ratio 29.4 (12.0-20.0); Calcium, Blood 9.5 mg/dL (8.5-10.1); Creatinine, Blood 0.78 mg/dL (0.40-1.00); Potassium, Blood 4.4 mmol/L (3.5-5.5)
[2024-05-26 07:36] VITALS: BP 142/70
[2024-05-26] MEDS ORDERED: Magnesium Citrate 300 ML BTL PO ONE (10:40)
[2024-05-26 15:45] VITALS: BP 110/64
[2024-05-26] MEDS ORDERED: Lactulose 20 GM/30 ML UDC PO ONE ×2 (16:10→16:15)
--- NOTE | 2024-05-26 16:48 | NUR ---
SUMMARY NO ACUTE CHANGES THIS SHIFT. STILL NO BM TODAY. ENULOSE STARTED. PLAN TO DISCHARGE TOMORROW TO [facility]. 5-7L NC, INCREASED TO 10L WITH AMBULATION. SBA WITH BSC
[2024-05-26] MEDS ORDERED: Lactulose 20 GM/30 ML UDC PO SCH (17:00)
[2024-05-26 19:53] VITALS: BP 120/68
--- NOTE | 2024-05-27 01:08 | NUR ---
@0943 THIS ELECTRIC ARC WELDER CALLED THE ON-CALL HOSPITALIST . PT IS HAVING HIGH ANXIETY, PT STATES HAVE NOT BEEN ABLE TO SLEEP FOR DAYS. TRAZADONE 100MG NOT EFFECTIVE, WAS ADMINISTERED AT HS.
[2024-05-27] MEDS ORDERED: LORazepam 0.5 MG Tab PO PRN (01:15)
--- NOTE | 2024-05-27 03:18 | NUR ---
SHIFT SUMMARY PT IS A/O X4, ABLE TO MAKE HER NEEDS KNOWN. RESTLESS T/O THE NIGHT HRS. NEW T-ORDER ATIVAN 0.5MG PO PRN QD RECEIVED FROM THE ON-CALL HOSPITALIST, EFFECTIVE FOR ANXIETY AND INSOMNIA. PER PT REPORT: ANXIETY R/T POSSIBLY D/C TO [facility], DOES NOT WANT TO GO BACK TO [facility] D/T POOR CARE. HS BG 151, GLARGINE ADMINISTERED ORDERED. PT C/O EAR ACHE ON THE RIGHT SIDE- PT REQUESTING PROVIDER TO ASSESS TODAY. PRN TYLENOL ADMINISTERED FOR C/O 6 PAIN. O2 @6L VIA NASAL CANNULA, CONTINUOUS PULSE OXIMETER>93%. DESATTING WHEN TRANSFERRING TO BEDSIDE COMMODE, LOW 80%. MULTIPLE BM'S, (LOOSE XL) DURING THIS SHIFT. MIRALAX PRN @HS ADMINISTERED ORDERED. PT RECEIVED LACTULOSE DURING PREVIOUS SHIFT. TRAZADONE PRN 100MG @HS NOT EFFECTIVE PER PT REPORT. NO ACUTE EVENTS DURING THIS SHIFT. BED AT THE LOWEST POSITION, CALL LIGHT W/I REACH.
[2024-05-27 05:55] VITALS: BP 148/68
[2024-05-27 06:18] LABS: BASOPHILS ABSOLUTE AUTO 0.01 K/mm3 (0.00-0.23); BASOPHILS PERCENT AUTO 0 % (0-2); EOSINOPHILS ABSOLUTE AUTO 0.13 K/mm3 (0.00-0.68); EOSINOPHILS PERCENT AUTO 1 % (0-6); Hematocrit 40.1 % (33.0-51.0); IMMATURE GRAN ABSOLUTE AUTO 0.07 K/mm3 (0.00-0.10); IMMATURE GRAN PERCENT AUTO 1 % (0-1); LYMPHOCYTES ABSOLUTE AUTO 1.42 K/mm3 (0.84-5.20); LYMPHOCYTES PERCENT AUTO 16 % (21-46); MONOCYTES PERCENT AUTO 12 % (4-13); Mean Corpuscular HGB 30.2 pg (26.0-34.0); Mean Corpuscular HGB Conc 32.4 g/dL (31.5-36.5); Mean Corpuscular Volume 93 fL (80-100); Mean Platelet Volume 11.2 fL (9.1-12.4); NEUTROPHILS PERCENT AUTO 70 % (41-73); Platelet Count 208 K/mm3 (150-400); RDW Coefficient Variation 15.4 % (11.7-14.2); RDW Standard Deviation 53.5 fL (35.1-46.3); Red Blood Cell Count 4.31 M/mm3 (3.80-5.20); White Blood Cell Count 9.13 K/mm3 (4.00-11.30)
[2024-05-27 06:41] LABS: Bun/Creatinine Ratio 29.4 (12.0-20.0); Calcium, Blood 9.4 mg/dL (8.5-10.1); Creatinine, Blood 0.78 mg/dL (0.40-1.00); Potassium, Blood 4.3 mmol/L (3.5-5.5)
[2024-05-27 07:10] VITALS: BP 122/60
[2024-05-27] MEDS ORDERED: Saline Nasal Spray 45 ML PRN (09:20)
[2024-05-27] MEDS ORDERED: Torsemide 20 MG TAB PO ONE (12:00)
[2024-05-27] MEDS ORDERED: AMOX875 PO (12:42)
[2024-05-27] MEDS ORDERED: NASAL SPRAY88 ML NS (12:43)
[2024-05-27] MEDS ORDERED: VISBIOME 112.51 EACH PO (12:45)
--- NOTE | 2024-05-27 15:44 | NUR ---
REPORT GIVEN TO [facility]. PT IS AWAITING TRANSPORT. ANXIOUS, ALERT AND ORIENTED X4, ABLE TO EXPRESS NEEDS, 6-7L NC/FACE MASK AT REST. 10L WITH AMBULATION.
--- NOTE | 2024-05-27 16:14 | NUR ---
PT LEFT TO [facility] VIA TRANSPORT. FAMILY AT BEDSIDE.
== END 2024-05-27 15:58 | DRG 196 ==
LOC: ER 13:39 → PCU 17:31 → ER 21:39 → PCU 22:43 → MEDS 05-24 19:24
PROVIDERS: Emergency Medicine; Family Medicine; Nurse Practitioner Acute Care; Student in an Organized Health Care Education/Training Program; ADMIT Student in an Organized Health Care Education/Training Program
PROC: 5A0935A Assistance with Respiratory Ventilation, Less than 24 Consecutive Hours, High Flow/Velocity Cannula (ICD-10-PCS; principal; 2024-05-21)
DX: J84.10 Pulmonary fibrosis, unspecified (principal); J18.9 Pneumonia, unspecified organism; J96.21 Acute and chronic respiratory failure with hypoxia; N39.0 Urinary tract infection, site not specified; I50.32 Chronic diastolic (congestive) heart failure; J44.0 Chronic obstructive pulmonary disease with (acute) lower respiratory infection; G47.33 Obstructive sleep apnea (adult) (pediatric); I27.20 Pulmonary hypertension, unspecified; I25.10 Atherosclerotic heart disease of native coronary artery without angina pectoris; K21.9 Gastro-esophageal reflux disease without esophagitis; E11.9 Type 2 diabetes mellitus without complications; Z90.2 Acquired absence of lung [part of]; Z85.118 Personal history of other malignant neoplasm of bronchus and lung; I11.0 Hypertensive heart disease with heart failure; F32.A Depression, unspecified; Z88.8 Allergy status to other drugs, medicaments and biological substances; Z91.040 Latex allergy status; Z79.899 Other long term (current) drug therapy; Z79.4 Long term (current) use of insulin; Z79.02 Long term (current) use of antithrombotics/antiplatelets; Z79.811 Long term (current) use of aromatase inhibitors; Z95.5 Presence of coronary angioplasty implant and graft; Z87.81 Personal history of (healed) traumatic fracture; Z90.710 Acquired absence of both cervix and uterus; Z90.89 Acquired absence of other organs; Z98.890 Other specified postprocedural states; Z90.11 Acquired absence of right breast and nipple; Z87.891 Personal history of nicotine dependence; Z99.81 Dependence on supplemental oxygen; Z87.19 Personal history of other diseases of the digestive system
CPT/HCPCS: 0202U; 0241U; 36415; 51701; 71045; 71260; 80048; 80053; 81001; 82947; 83735; 83880; 84145; 84484; 85025; 85027; 85379; 87077; 87086; 87186; 93005; 93010; 94640; 94644; 94664; 94760; 94761; 94762; 96374; 97110; 97116; 97162; 97165; 97530; 97530-CQ; 97535; 99285-25; A9270; J0456; J0696; J1650; J1815; J2919; J7030; J7040; J7050; J7512; Q9967

== ENCOUNTER → 2024-06-19 | Outpatient (CLI) | payer MEDICARE, BC ==
[~2024-06-19] MED LIST changes: +AMOX875 PO; +ARTIFICIAL TEAR15 M2 BOTHEYES; +AZIT250 PO; +Calcium Carbon500 MG PO; +NASAL SPRAY88 ML NS; +Oxybutynin Chlo10 MG PO; +Prednisone20 MG PO
[2024-06-19 14:35] LABS: Source, Urine Clean Catch
[2024-06-19 15:31] LABS: Appearance, Urine Hazy (Clear); Bilirubin, Urine Neg (Neg); Blood, Urine Neg (Neg); Color, Urine Yellow (P-Yellow); Glucose Qualitative, Urine Neg (Neg); Ketones, Urine Neg (Neg); Leukocyte Esterase, Urine 2+ (Neg); Nitrite, Urine Neg (Neg); Protein, Urine Neg (Neg); Specific Gravity, Urine 1.015 (1.003-1.022); Urobilinogen, Urine NORM (Normal)
[2024-06-19 15:59] LABS: Amorphous Light (0-Heavy); Bacteria Mod /hpf; Calcium Oxalate Crystals Mod /hpf; Mucus Light (0-Heavy); Red Blood Cells, Urine 0-2 /hpf (0-2); Squamous Epithelial Cells Rare /hpf (Few); Transitional Epithelial Cells Rare /hpf (0-Rare); Yeast/Fungi Urine Many /hpf
== END ==
LOC: LAB 14:33 → LAB SHORT 14:33 → LAB FUT 06-06 11:45
PROVIDERS: Urology Female Pelvic Medicine and Reconstructive Surgery
DX: N39.0 Urinary tract infection, site not specified (principal); N39.41 Urge incontinence
CPT/HCPCS: 81001; 87077; 87086; 87186

== ENCOUNTER → 2024-07-11 | Outpatient (CLI) | payer MEDICARE, BC | LOC: LAB SHORT 16:23 → LAB 16:23 | DX: C34.90 Malignant neoplasm of unspecified part of unspecified bronchus or lung (principal); R04.2 Hemoptysis | CPT/HCPCS: 87070; 87077; 87106; 87186; 87205 ==

== ENCOUNTER → 2024-12-27 | Outpatient (CLI) | payer MEDICARE, BC | LOC: LAB 07:40 → LAB SHORT 07:40 | DX: R05.9 Cough, unspecified (principal) | CPT/HCPCS: 87070; 87077; 87106; 87186; 87205 ==

== ENCOUNTER → 2025-01-10 | Outpatient (CLI) | payer MEDICARE, BC | LOC: LAB SHORT 11:41 → LAB 11:41 | DX: N39.0 Urinary tract infection, site not specified (principal) | CPT/HCPCS: 87077; 87086; 87186 ==

== ENCOUNTER → 2025-02-06 | Outpatient (CLI) | payer MEDICARE, BC | LOC: LAB 17:27 → LAB SHORT 17:27 | DX: R33.8 Other retention of urine (principal) | CPT/HCPCS: 87086 ==

== ENCOUNTER → 2025-02-17 | Outpatient (CLI) | payer MEDICARE, BC ==
[2025-02-17 15:57] LABS: Source, Urine Voided
[2025-02-17 16:05] LABS: Bilirubin, Urine Neg (Neg); Color, Urine Yellow (P-Yellow); Glucose Qualitative, Urine Neg (Neg); Ketones, Urine Neg (Neg); Leukocyte Esterase, Urine 3+ (Neg); Protein, Urine 3+ (Neg); Specific Gravity, Urine 1.020 (1.003-1.022); Urobilinogen, Urine NORM (Normal)
[2025-02-17 16:17] LABS: White Blood Cells, Urine TNTC /hpf (0-5)
== END ==
LOC: LAB 15:53 → LAB SHORT 15:53
PROVIDERS: Family Medicine
DX: N39.0 Urinary tract infection, site not specified (principal)
CPT/HCPCS: 81001; 87077; 87086; 87186

== ENCOUNTER → 2025-02-24 | Outpatient (CLI) | payer MEDICARE, BC ==
[2025-02-24 15:19] LABS: Source, Urine Clean Catch
[2025-02-24 17:20] LABS: Bilirubin, Urine Neg (Neg); Color, Urine Yellow (P-Yellow); Glucose Qualitative, Urine Neg (Neg); Ketones, Urine Neg (Neg); Leukocyte Esterase, Urine Neg (Neg); Protein, Urine 1+ (Neg); Specific Gravity, Urine 1.020 (1.003-1.022); Urobilinogen, Urine NORM (Normal)
[2025-02-24 17:37] LABS: Red Blood Cells, Urine 0-2 /hpf (0-2)
== END ==
LOC: LAB 15:17 → LAB SHORT 15:17
PROVIDERS: Family Medicine
DX: N39.0 Urinary tract infection, site not specified (principal)
CPT/HCPCS: 81001; 87077; 87086; 87147; 87186

== ENCOUNTER → 2025-03-11 | Outpatient (CLI) | payer MEDICARE, BC | LOC: LAB 12:33 → LAB SHORT 12:33 | DX: N39.0 Urinary tract infection, site not specified (principal) | CPT/HCPCS: 87077; 87086; 87186 ==

== ENCOUNTER 2025-03-28 11:53 | Inpatient (IN) | payer MEDICARE, BC ==
[~2025-03-28] VITALS: Ht 165.1 cm; Wt 101.0 kg
[2025-03-28] VITALS (31 sets, daily range): BP systolic 73–129; BP diastolic 54–100
[~2025-03-28 11:53] MED LIST changes: +ATOR80 PO; +BUSPIRONE HCL30 M1 PO; -Buspirone HCl15 MG PO
[2025-03-28] MEDS ORDERED: Ipratropium/Albuterol SulF 2.5-0.5MG/3 ML Amp INH ONE (12:25)
[2025-03-28] MEDS ORDERED: Mag Sulfate 1 GM/D5% 100ML 100 ML IV ONE (12:35)
[2025-03-28 12:36] LABS: BASOPHILS ABSOLUTE AUTO 0.07 K/mm3 (0.00-0.23); BASOPHILS PERCENT AUTO 1 % (0-2); EOSINOPHILS ABSOLUTE AUTO 0.20 K/mm3 (0.00-0.68); EOSINOPHILS PERCENT AUTO 2 % (0-6); Hematocrit 43.5 % (33.0-51.0); Hemoglobin 13.2 g/dL (11.5-16.0); IMMATURE GRAN ABSOLUTE AUTO 0.04 K/mm3 (0.00-0.10); IMMATURE GRAN PERCENT AUTO 0 % (0-1); LYMPHOCYTES ABSOLUTE AUTO 0.88 K/mm3 (0.84-5.20); LYMPHOCYTES PERCENT AUTO 9 % (21-46); MONOCYTES ABSOLUTE AUTO 0.69 K/mm3 (0.16-1.47); MONOCYTES PERCENT AUTO 7 % (4-13); Mean Corpuscular HGB Conc 30.3 g/dL (31.5-36.5); Mean Corpuscular Volume 91 fL (80-100); NEUTROPHILS ABSOLUTE AUTO 8.45 K/mm3 (1.96-9.15); NEUTROPHILS PERCENT AUTO 82 % (41-73); NRBC ABSOLUTE 0.00 K/mm3 (0.00-0.02); NRBC Auto 0.0 /100 WBC (0.0-0.2); Platelet Count 201 K/mm3 (150-400); RDW Coefficient Variation 19.9 % (11.7-14.2); RDW Standard Deviation 66.4 fL (35.1-46.3)
[2025-03-28 12:58] LABS: Alanine Aminotransfer (ALT/SGP 17.0 U/L (12-78); Albumin, Blood 3.6 g/dL (3.4-5.0); Albumin/Globulin Ratio 1.2 (0.8-1.8); Anion Gap 10.0 mmol/L (3-11); Aspartate Aminotrans (AST/SGOT 32.0 U/L (12-37); Bilirubin, Total 1.2 mg/dL (0.1-1.0); Blood Urea Nitrogen 52.0 mg/dL (8-24); CO2, Blood 28.0 mmol/L (21-32); Calcium, Blood 10.1 mg/dL (8.5-10.1); Chloride, Blood 104.0 mmol/L (98-108); Creatinine, Blood 1.63 mg/dL (0.40-1.00); Globulin, Blood 3.1 g/dL (2.2-4.0); Glucose, Blood 122.0 mg/dL (70-99); Potassium, Blood 5.4 mmol/L (3.5-5.5); Sodium, Blood 137.0 mmol/L (136-145); Total Protein, Blood 6.7 g/dL (6.4-8.2)
[2025-03-28 14:35] LABS: Influenza A, PCR NEGATIVE (NEGATIVE); Influenza B, PCR NEGATIVE (NEGATIVE); Resp Syncytial Virus, PCR NEGATIVE (NEGATIVE); SARS-Cov-2 (COVID-19) PCR, MMC NEGATIVE (NEGATIVE)
[2025-03-28] MEDS ORDERED: Ipratropium/Albuterol SulF 2.5-0.5MG/3 ML Amp INH SCH (15:05)
[2025-03-28] MEDS ORDERED: FLU VACC TS2025(65UP)/MF59C/PF 45 MCG/0.5 ML SYRINGE IM SCH (15:10)
[2025-03-28] MEDS ORDERED: Magnesium Hydroxide Conc 10 ML UDC PO PRN (15:25)
[2025-03-28] MEDS ORDERED: Vancomycin (Pharmacy Consult) IV SCH (15:35)
[2025-03-28] MEDS ORDERED: CefTRIAXone Sodium 1,000 MG in NS 100 ML IV SCH (16:00)
[2025-03-28] MEDS ORDERED: Heparin Sodium,Porcine 5,000 UNIT/0.5 ML SDV SC SCH (16:00)
[2025-03-28 16:09] LABS: pH Blood Venous 7.37 (7.34-7.37)
[2025-03-28] MEDS ORDERED: Insulin Human Lispro 100 Units/ML 3ML Syringe SC SCH (16:30)
[2025-03-28 16:33] LABS: Anti-Xa UFH, PHA Monitoring <0.10 IU/mL; Prothrombin Time Results 12.3 Sec (9.7-11.5)
[2025-03-28] MEDS ORDERED: Dose Adjust by Pharmacy XX STA (17:36)
[2025-03-28] MEDS ORDERED: Heparin Sodium,Porcine/0.5 NS 500 ML IV SCH (17:40)
[2025-03-28] MEDS ORDERED: Heparin Sodium 5000 Units/ML 1ML MDV IV ONE ×3 (17:40→20:05)
--- NOTE | 2025-03-28 19:17 | NUR ---
PT ARRIVED FROM ER SOB ON 60% BIPAP. CAREGIVER AT BEDSIDE. CRCKLES BU LOBES. PT VERY ANXIOYUS AND MOVES CONSTANTLY. DR. ROJAS AT BEDSIDE AND ORDERED PICC PLACEMENT, F/C AND DOPAMINE INFUSION TO STAART AFTER PICC PLACEMENT. HEPARIN WILL BE STARTED AFTER PICC PLACEMENT. F/C WILL BE INSERTED.
--- NOTE | 2025-03-28 19:20 | NUR ---
END OF SHIFT. PICC IN RUE. F/C PLACED. DOPAMINE STARTED A 3 MICS. CAREGIVER AT BEDSIDE.
[2025-03-28 20:17] LABS: Anion Gap 13.0 mmol/L (3-11); Blood Urea Nitrogen 54.0 mg/dL (8-24); CO2, Blood 24.0 mmol/L (21-32); Calcium, Blood 9.9 mg/dL (8.5-10.1); Chloride, Blood 104.0 mmol/L (98-108); Creatinine, Blood 1.57 mg/dL (0.40-1.00); Glucose, Blood 191.0 mg/dL (70-99); Potassium, Blood 5.3 mmol/L (3.5-5.5); Sodium, Blood 136.0 mmol/L (136-145)
--- NOTE | 2025-03-28 23:03 | NUR ---
ASSUMPTION OF CARE NOTE: ASSUMED CARE AT 1900 PT REMAINS ON BIPAP (SEE SETTINGS IN RESP ASSESSMENT) AND HAS CAREGIVER AT BEDSIDE. PT HAS LEVO,DOPAMINE INFUSING (SEE FLOWSHEET). SBP'S 90-100 AND GOAL OF >100 SBP'S AND MAP >65. SPO2 >95% ON BIPAP. HEPARIN TO BE STARTED AT 18 U/KG/HR. PT IS NPO AND HAS PATENT JOSSUE PICC AND PIV'S. PATENT BARCENAS DRAINING TO GRAVITY. A&OX4 AND CALL LIGHT IN REACH AND CALLS TO MAKE NEEDS KNOWN. BED LOW AND LOCKED FOR SAFETY. PT MEDICATED PER EMAR.
[2025-03-29] VITALS (85 sets, daily range): BP systolic 69–127; BP diastolic 56–103
[2025-03-29 03:01] LABS: BASOPHILS ABSOLUTE AUTO 0.00 K/mm3 (0.00-0.23); BASOPHILS PERCENT AUTO 0 % (0-2); EOSINOPHILS ABSOLUTE AUTO 0.00 K/mm3 (0.00-0.68); EOSINOPHILS PERCENT AUTO 0 % (0-6); Hematocrit 43.3 % (33.0-51.0); Hemoglobin 13.3 g/dL (11.5-16.0); IMMATURE GRAN ABSOLUTE AUTO 0.03 K/mm3 (0.00-0.10); IMMATURE GRAN PERCENT AUTO 0 % (0-1); LYMPHOCYTES ABSOLUTE AUTO 0.69 K/mm3 (0.84-5.20); LYMPHOCYTES PERCENT AUTO 7 % (21-46); MONOCYTES ABSOLUTE AUTO 0.44 K/mm3 (0.16-1.47); MONOCYTES PERCENT AUTO 5 % (4-13); Mean Corpuscular HGB Conc 30.7 g/dL (31.5-36.5); Mean Corpuscular Volume 91 fL (80-100); NEUTROPHILS ABSOLUTE AUTO 8.69 K/mm3 (1.96-9.15); NEUTROPHILS PERCENT AUTO 88 % (41-73); NRBC ABSOLUTE 0.00 K/mm3 (0.00-0.02); NRBC Auto 0.0 /100 WBC (0.0-0.2); Platelet Count 247 K/mm3 (150-400); RDW Coefficient Variation 19.7 % (11.7-14.2); RDW Standard Deviation 65.1 fL (35.1-46.3)
[2025-03-29 03:24] LABS: Alanine Aminotransfer (ALT/SGP 16.0 U/L (12-78); Albumin, Blood 3.4 g/dL (3.4-5.0); Albumin/Globulin Ratio 1.1 (0.8-1.8); Anion Gap 14.0 mmol/L (3-11); Aspartate Aminotrans (AST/SGOT 18.0 U/L (12-37); Bilirubin, Total 1.0 mg/dL (0.1-1.0); Blood Urea Nitrogen 56.0 mg/dL (8-24); CO2, Blood 23.0 mmol/L (21-32); Calcium, Blood 9.7 mg/dL (8.5-10.1); Chloride, Blood 104.0 mmol/L (98-108); Creatinine, Blood 1.63 mg/dL (0.40-1.00); Globulin, Blood 3.2 g/dL (2.2-4.0); Glucose, Blood 256.0 mg/dL (70-99); Potassium, Blood 5.2 mmol/L (3.5-5.5); Sodium, Blood 136.0 mmol/L (136-145); Total Protein, Blood 6.6 g/dL (6.4-8.2)
[2025-03-29] MEDS ORDERED: Dose Adjust by Pharmacy XX STA ×5 (03:40→23:01)
--- NOTE | 2025-03-29 05:28 | NUR ---
SHIFT SUMM: PT REMAINS ON BIPAP-SETTINGS UNCHANGED. SP02 >94% AND SBP'S GOAL MET OF >100 RANGING FROM 90-110'S WITH A MAP GOAL >65. PT HAS DOPAMINE, PRECEDEX,HEPARIN AND LEVOPHED INFUSING (SEE FLOWSHEET FOR TITRATIONS).PT REMAINS NPO.BARCENAS PATENT AND DRAINING TO GRAVITY. PIV AND JOSSUE PICC REMAIN PATENT. PT IS A&OX4 AND ABLE TO CALL AND MAKE NEEDS KNOWN. PT IS ABLE TO TURN SELF IN BED. HAS CALL LIGHT IN REACH AND BED LOW AND LOCKED FOR SAFETY.
[2025-03-29] MEDS ORDERED: Pantoprazole Sodium 40 MG Injection IV ONE (05:40)
--- NOTE | 2025-03-29 08:00 | NUR ---
ASSUMED CARE. RECEIVED REPORT FROM NIGHT RN. PT SLEEPING EASILY ON BIPAP. AWAKENS EASILY AND ANSWERS QUESTIONS APPROPRIATELY. LUNGS DIMINISHED. 0 COUGHING. DOPAMINE AT 10 MICS. LEVO AT 5 MICS. HEPARIN ON HOLD X 1 HR. PRECEDEX IS AT .2. UPDATED.
[2025-03-29 08:55] LABS: Anti-Xa UFH, PHA Monitoring 0.79 IU/mL
[2025-03-29] MEDS ORDERED: Enoxaparin 40 MG/0.4 ML SYR SC SCH (09:00)
[2025-03-29] MEDS ORDERED: BREZTRI AEROS10.7 GM INH (10:38)
[2025-03-29] MEDS ORDERED: PRED5 PO (10:39)
[2025-03-29] MEDS ORDERED: Acetaminophen325 M1 PO (10:39)
--- NOTE | 2025-03-29 11:08 | NUR ---
PT SWITCHED TO HIGH FLOW 60 LITERS 73%. PT ALERT. PT DESATS TO 88% WHEN TALKING. DR. MONTES WOULD LIKE TO KEEP SATURATIONS 92% OR GREATER.
[2025-03-29 14:37] LABS: Hematocrit 40.5 % (33.0-51.0); Hemoglobin 12.4 g/dL (11.5-16.0); Platelet Count 218 K/mm3 (150-400)
--- NOTE | 2025-03-29 18:34 | NUR ---
END OF SHIFT. PT IS ON BIPAP OF 14/8 AND 60%. HIGH FLOW TRIALED BUT PT UNABLE TO KEEP O2 SATURATION >90. oUR GOAL FOR THIS PATIENT IS >92%. DOPAMINE AT 10 MICS, LEVOPHED HAD BEEN WEANED OFF BUT RESTARTED AT 5 MICS PER REQUEST OF DR. ROJAS TO KEEP SPB > 100 AND MAP > 65 . US VENOUS DOPPLER DONE FOR DVTS AND IS NEGATIVE. FINGERTIPS AND TOES DUSKY THIS MORNING AND HAD PINKED UP AFTER LEVOPHED TITRATED OFF. WILL MONITOR. BROUGHT IN MED LIST AND MED REC DONE. TOOK HOME MONEY AND DRIVERS LICENSE. CAREGIVER AT BEDSIDE. HEPARIN AT 11 UNITS.
--- NOTE | 2025-03-29 21:50 | NUR ---
ASSUMPTION OF CARE ASSUMED CARE OF PT APPROX 1900. PT IS SOMNOLENT, WILL OPEN EYES WHEN PROMPTED BUT FALLS BACK TO SLEEP WHILE TALKING. ORIENTED TO SELF/PERSON, NOT ABLE TO FULLY ASSESS WHILE SOMNOLENT. DOPAMINE INFUSING AT 10, LEVO AT 5, PRECEDEX AT 0.1, AND HEPARIN AT 11 U. PT IS ON BIPAP 14/8 AND 60% FI02. SATS REMAIN >90%. RHYTHM IS SINUS ON MONITOR WITH RATES IN THE 80S, BP IS STABLE WITH MAP >65 AND SYSTOLIC >100 PER GOAL SET BY PROVIDER. TEMP BARCENAS IN PLACE AND DRAINING TO GRAVITY. CALL LIGHT WITHIN REACH.
[2025-03-30] VITALS (91 sets, daily range): BP systolic 85–131; BP diastolic 50–107
[2025-03-30 05:03] LABS: BASOPHILS ABSOLUTE AUTO 0.02 K/mm3 (0.00-0.23); BASOPHILS PERCENT AUTO 0 % (0-2); EOSINOPHILS ABSOLUTE AUTO 0.01 K/mm3 (0.00-0.68); EOSINOPHILS PERCENT AUTO 0 % (0-6); Hematocrit 42.8 % (33.0-51.0); Hemoglobin 13.3 g/dL (11.5-16.0); IMMATURE GRAN ABSOLUTE AUTO 0.07 K/mm3 (0.00-0.10); IMMATURE GRAN PERCENT AUTO 0 % (0-1); LYMPHOCYTES ABSOLUTE AUTO 1.05 K/mm3 (0.84-5.20); LYMPHOCYTES PERCENT AUTO 6 % (21-46); MONOCYTES ABSOLUTE AUTO 1.48 K/mm3 (0.16-1.47); MONOCYTES PERCENT AUTO 8 % (4-13); Mean Corpuscular HGB Conc 31.1 g/dL (31.5-36.5); Mean Corpuscular Volume 90 fL (80-100); NEUTROPHILS ABSOLUTE AUTO 14.95 K/mm3 (1.96-9.15); NEUTROPHILS PERCENT AUTO 85 % (41-73); NRBC ABSOLUTE 0.00 K/mm3 (0.00-0.02); NRBC Auto 0.0 /100 WBC (0.0-0.2); Platelet Count 254 K/mm3 (150-400); RDW Coefficient Variation 19.8 % (11.7-14.2); RDW Standard Deviation 65.3 fL (35.1-46.3)
[2025-03-30] MEDS ORDERED: Dose Adjust by Pharmacy XX STA ×2 (05:18→11:23)
[2025-03-30 05:40] LABS: Alanine Aminotransfer (ALT/SGP 14.0 U/L (12-78); Albumin, Blood 3.3 g/dL (3.4-5.0); Albumin/Globulin Ratio 1.0 (0.8-1.8); Anion Gap 9.0 mmol/L (3-11); Aspartate Aminotrans (AST/SGOT 16.0 U/L (12-37); Bilirubin, Total 0.7 mg/dL (0.1-1.0); Blood Urea Nitrogen 58.0 mg/dL (8-24); CO2, Blood 26.0 mmol/L (21-32); Calcium, Blood 9.4 mg/dL (8.5-10.1); Chloride, Blood 104.0 mmol/L (98-108); Creatinine, Blood 1.57 mg/dL (0.40-1.00); Globulin, Blood 3.2 g/dL (2.2-4.0); Glucose, Blood 190.0 mg/dL (70-99); Potassium, Blood 5.1 mmol/L (3.5-5.5); Sodium, Blood 134.0 mmol/L (136-145); Total Protein, Blood 6.5 g/dL (6.4-8.2)
[2025-03-30] MEDS ORDERED: Pantoprazole Sodium 40 MG Injection IV SCH (06:00)
--- NOTE | 2025-03-30 06:03 | NUR ---
SHIFT SUMMARY PT REMAINS ON BIPAP 05/12 60% FI02, SOMNOLENT BUT AROUSABLE, ORIENTED TO SELF AND PERSON WITH PRECEDEX INFUSING AT 0.2 MCG, DOPAMINE AT 10 MCG, LEVO AT 3 MCG. PT IS ABLE TO OPEN EYES WHEN PROMPTED AND ANSWER QUESTIONS FOR SHORT DURATIONS BEFORE FALLING BACK TO SLEEP. RHYTHM IS SINUS ON MONITOR WITH RATE IN 80S, BP STABLE WITH MAP >65 AND SYSTOLIC >100 PER PARAMETERS. SATS REMAIN >90 % ON BIPAP. TEMP BARCENAS IN PLACE AND DRAINING TO GRAVITY. CALL LIGHT WITHIN REACH.
--- NOTE | 2025-03-30 08:51 | NUR ---
PALLIATIVE CARE CONSULT: CONSULT RECEIVED FOR CARDIAC/PULMONARY AND ADVANCED CARE PLANNING. DISCUSS CODE STATUS, POA IDENTIFICATION. REVIEWED MEDICAL RECORD. PT HAS POLST ON FILE AND IN [facility] CPR, FULL MEASURES DATED AND SIGNED 04/18/2024. HOWEVER, DR. ROJAS CHARTED HE HAD DISCUSSION WITH PT AND SHE WOULD WANT MECHANICAL VENTILATION BUT NO CPR. CODE STATUS BY THIS WOULD INDICATE PT SHOULD BE LIMITED WITH PROVIDING NO CPR BUT ALL INTERVENTIONS INCLUDING MECHANICAL VENTILATION, SHOCK, AND MEDICATIONS. WILL ADDRESS WITH PT/SPOUSE IF AVAILABLE.
--- NOTE | 2025-03-30 12:00 | NUR ---
PALLIATIVE CARE NOTE: ATTEMPTED VISIT AT NOON. PT ASLEEP. RR E/U. LIGHTLY SNORING.
--- NOTE | 2025-03-30 18:28 | NUR ---
DOMENIC WAS ABLE TO TOLERATE BEING ON THE AIRVO FOR OVER 4 HOURS THIS SHIFT. SHE WAS ABLE TO BE WEANED OFF THE DOPAMINE TO STRICTLY 10MCG OF NOREPINEPHRINE PER ORDER OF . SHE HAS BEEN ABLE TO TAKE IN JUICE AND WATER, SOME DECAF COFFEE AND TOLERATED WELL. SHE HAS HAD GOOD URINE OUTPUT IN RESPONSE TO LASIX DOSING. SHE REMAINS ON THE BIPAP WITH THE PRECEDEX AT 0.2, HEPARIN REMAINS STABLE AT 11U/KG/HR. PT WAS EXPERIENCING SOME DREAMING AND CALLING OUT THIS AFTERNOON, ADMITTEDLY AWAKENED TO REPORTING WEIRD DREAMS OF BEING HELD DOWN. VISITED EARLY PART OF SHIFT, SON CALLED IN AND UPDATED.
[2025-03-30 20:08] LABS: Vancomycin, Trough 20.1 ug/mL (5.0-10.0)
[2025-03-31] VITALS (87 sets, daily range): BP systolic 10–132; BP diastolic 49–88
[2025-03-31 04:06] LABS: BASOPHILS ABSOLUTE AUTO 0.03 K/mm3 (0.00-0.23); BASOPHILS PERCENT AUTO 0 % (0-2); EOSINOPHILS ABSOLUTE AUTO 0.29 K/mm3 (0.00-0.68); EOSINOPHILS PERCENT AUTO 2 % (0-6); Hematocrit 40.6 % (33.0-51.0); Hemoglobin 12.7 g/dL (11.5-16.0); IMMATURE GRAN ABSOLUTE AUTO 0.05 K/mm3 (0.00-0.10); IMMATURE GRAN PERCENT AUTO 0 % (0-1); LYMPHOCYTES ABSOLUTE AUTO 1.15 K/mm3 (0.84-5.20); LYMPHOCYTES PERCENT AUTO 9 % (21-46); MONOCYTES ABSOLUTE AUTO 1.11 K/mm3 (0.16-1.47); MONOCYTES PERCENT AUTO 8 % (4-13); Mean Corpuscular HGB Conc 31.3 g/dL (31.5-36.5); Mean Corpuscular Volume 87 fL (80-100); NEUTROPHILS ABSOLUTE AUTO 10.91 K/mm3 (1.96-9.15); NEUTROPHILS PERCENT AUTO 81 % (41-73); NRBC ABSOLUTE 0.00 K/mm3 (0.00-0.02); NRBC Auto 0.0 /100 WBC (0.0-0.2); Platelet Count 203 K/mm3 (150-400); RDW Coefficient Variation 19.9 % (11.7-14.2); RDW Standard Deviation 63.3 fL (35.1-46.3)
[2025-03-31 04:22] LABS: Alanine Aminotransfer (ALT/SGP 14.0 U/L (12-78); Albumin, Blood 3.1 g/dL (3.4-5.0); Albumin/Globulin Ratio 1.0 (0.8-1.8); Anion Gap 9.0 mmol/L (3-11); Aspartate Aminotrans (AST/SGOT 19.0 U/L (12-37); Bilirubin, Total 0.9 mg/dL (0.1-1.0); Blood Urea Nitrogen 47.0 mg/dL (8-24); CO2, Blood 29.0 mmol/L (21-32); Calcium, Blood 9.6 mg/dL (8.5-10.1); Chloride, Blood 104.0 mmol/L (98-108); Creatinine, Blood 1.26 mg/dL (0.40-1.00); Globulin, Blood 3.0 g/dL (2.2-4.0); Glucose, Blood 133.0 mg/dL (70-99); Magnesium, Blood 2.4 mg/dL (1.6-2.4); Phosphorus, Blood 3.2 mg/dL (2.5-4.9); Potassium, Blood 4.1 mmol/L (3.5-5.5); Sodium, Blood 138.0 mmol/L (136-145); Total Protein, Blood 6.1 g/dL (6.4-8.2)
[2025-03-31] MEDS ORDERED: Dose Adjust by Pharmacy XX STA (04:26)
--- NOTE | 2025-03-31 05:34 | NUR ---
SHIFT SUMM: PT REMAINS ON BIPAP (SEE RESP ASSESSMENT FOR SETTINGS) AND WAS ABLE TO GET SOME REST THIS EVENING. PT IS A&O 2-3 WITH MOMENTS OF CONFUSION AND NEEDS SOME REASSSURANCE OR REDIRECTION. PT CURRENTLY HAS PRECEDEX, HEPARIN, AND LEVOPHED INFUSING (SEE FLOWSHEET FOR TITRATIONS). PT WAS ABLE TO TAKE SOME OF HER PO MEDS BUT DID HAVE SOME COUGHING AND DESATTING TO 88%. PT'S SPO2 HAS MOSTLY MAINTAINED > 92% MOST OF THE SHIFT. PT SBP IS >100 PER DOCTOR PARAMETERS AND GOAL OF MAP >65 MET. TEMP BARCENAS REMAINS PATENT WITH SOME LEAKING. JOSSUE PICC AND PIV'S REMAIN PATENT. PT WAS TRANSFERRED FROM ICU 12 TO ICU 14 FOR TOILET MALFUNCTIONS.CALL LIGHT IN REACH AND PT CALLS TO MAKE NEEDS KNOWN. BED LOW AND LOCKED FOR SAFETY.
--- NOTE | 2025-03-31 08:00 | NUR ---
ASSUMPTION OF CARE ASSUMED CARE OF PATIENT AT APPROX 0700. PATIENT A&OX4 AND ABLE TO MAKE NEEDS KNOWN. NO FOCAL DEFICITS. HR NORMAL SINUS IN THE 70S-80S. PICC TO JOSSUE PATENT AND INFUSING HEPARIN, LEVOPHED, AND PRECEDEX PER EMAR. SEE FLOWSHEET FOR TITRATIONS. SBP >100 AND MAPS >65 ON LEVOPHED. PATIENT ON BIPAP 14/8 65% WITH SPO2 >92%. TEMP BARCENAS PATENT AND DRAINING URINE TO GRAVITY. CALL LIGHT IN REACH. BED IN LOWEST POSITION. AT APPROX 0745 PATIENT WAS TRANSITIONED TO AIRVO AT 60L TO TAKE MEDS. SPO2 >91%.
[2025-03-31] MEDS ORDERED: TPN Consult Notification XX ONE (11:15)
[2025-03-31] MEDS ORDERED: Insulin Human Lispro 100 Units/ML 3ML Syringe SC SCH (12:00)
--- NOTE | 2025-03-31 14:30 | NUR ---
PALLIATIVE CARE VISIT: MET WITH PT DOMENIC AND SPOUSE TERESO IN THE ROOM TO DISCUSS GOC. DR. STOVER ALSO PRESENT. DR. STOVER UPDATED PT AND SPOUSE AND EVENTUALLY SON FABIOLA OVER THE PHONE REGARDING CURRENT HEALTH CONCERNS, TREATMENT PLAN/OPTIONS. ALSO DISCUSSED CONCERNS WITH INTUBATION. PT/FAMILY EDUCATED ON CPR VS DNR MEASURES AND FULL TREATMENT VS SELECTIVE TREATMENT. PT DOES NOT WANT CPR BUT DOES WANT TO BE INTUBATED IF NEEDED. SHE DOES NOT WANT TO HAVE A TRACH AND WOULD WANT COMFORT CARE IF SHE WAS UNABLE TO COME OFF VENTILATOR AFTER 2 WEEKS. SON FABIOLA IN AGREEABLE TO CHOICE. PT NAMED [facility] DECISION MAKER IN EVENT PT COULD NOT MAKE DECISIONS. CALLED DR. MARRERO TO REQUEST LIMITED CODE STATUS. GAVE UPDATE WHEN SHE CALLED BACK.
[2025-03-31] MEDS ORDERED: Parenteral Electolytes 40 ML,Potassium Phosphate Dibasic 30 MM,Multivitamins 10 ML,ZINC... IV SCH (17:00)
--- NOTE | 2025-03-31 17:12 | NUR ---
SHIFT SUMMARY PATIENT A&OX4. NO FOCAL DEFICITS. PATIENT ABLE TO MAKE NEEDS KNOWN WITH CALL LIGHT. PATIENT HAD SOME ANXIETY THROUGHOUT THE SHIFT. PICC TO JOSUSE INFUSING HEPARIN, LEVOPHED, AND PPN PER EMAR. SEE FLOWSHEET FOR TITRATIONS. HR SINUS IN THE 70S-80S. SBP >100 AND MAPS >65 ON THE LEVOPHED. PATIENT ON BIPAP 14/8 65% WITH SPO2 >92%. PATIENT WAS ON THE AIRVO MULTIPLE TIMES THROUGHOUT THE SHIFT AND TOLERATED IT WELL WITH SPO2 >90%. TEMP BARCENAS PATENT WITH CLEAR YELLOW URINE OUT. NO BM THIS SHIFT. CALL LIGHT IN REACH. BED IN LOWEST POSITION. PATIENTS FAMILY AT BEDSIDE THROUGHOUT THE SHIFT AND UPDATED ON PLAN OF CARE.
[2025-03-31 17:45] LABS: Source, Urine Foley catheter
[2025-03-31 18:37] LABS: Bilirubin, Urine Neg (Neg); Glucose Qualitative, Urine 2+ (Neg); Ketones, Urine Neg (Neg); Leukocyte Esterase, Urine Neg (Neg); Protein, Urine Neg (Neg); Specific Gravity, Urine 1.010 (1.003-1.022); Urobilinogen, Urine NORM (Normal)
[2025-03-31 18:48] LABS: Color, Urine Pale Yellow (P-Yellow)
--- NOTE | 2025-03-31 22:36 | NUR ---
ASSUMPTION OF CARE ASSUMED CARE OF PT APPROX 1899. PT IS ALERT AND ORIENTED TO SELF, PERSON, PLACE AND SITUATION. ABLE TO USE CALL LIGHT AND ANSWER QUESTIONS APPROPRIATELY, MOVES ALL EXTREMITIES AND CAN REPOSITION INDEPENDENTLY. LEVO INFUSING AT 5 MCG, HEPARIN AT 11 U, TPN AT 94 ML AND PRECEDEX ON SB. PT IS ON AIRVO 60L AND 90% FIO2 AT START OF SHIFT WITH SATS 87-89% WHEN TALKING AND TURNING PT DESATS TO MID 70S ON AIRVO. APPROX 1944 PLACED ON BIPAP AT 14/8 AND 65% FI02, SATS NOW AT 93-97%. BP STABLE WITH LEVO GTT WITH MAP >65 AND SYSTOLIC >100 PER PARAMETERS. TEMP BARCENAS IN PLACE AND DRAINING TO GRAVITY, TEMP WAS 100.4 UPON START OF SHIFT, PT WAS MEDICATED SHORTLY BEFORE SHIFT CHANGE. PT REPORTS POOR SLEEP QUALITY OVER LAST FEW DAYS AND BECAME AGITATED WITH BIPAP APPROX 2144 AND PRECEDEX WAS RESTARTED AT 0.2 MCG -SEE CCFS. DENIES UNMET NEEDS AT THIS TIME, CALL LIGHT WITHIN REACH.
[2025-04-01] VITALS (78 sets, daily range): BP systolic 71–124; BP diastolic 38–101
[2025-04-01 03:49] LABS: BASOPHILS ABSOLUTE AUTO 0.04 K/mm3 (0.00-0.23); BASOPHILS PERCENT AUTO 0 % (0-2); EOSINOPHILS ABSOLUTE AUTO 0.40 K/mm3 (0.00-0.68); EOSINOPHILS PERCENT AUTO 4 % (0-6); Hematocrit 40.2 % (33.0-51.0); Hemoglobin 12.6 g/dL (11.5-16.0); IMMATURE GRAN ABSOLUTE AUTO 0.03 K/mm3 (0.00-0.10); IMMATURE GRAN PERCENT AUTO 0 % (0-1); LYMPHOCYTES ABSOLUTE AUTO 1.06 K/mm3 (0.84-5.20); LYMPHOCYTES PERCENT AUTO 9 % (21-46); MONOCYTES ABSOLUTE AUTO 0.83 K/mm3 (0.16-1.47); MONOCYTES PERCENT AUTO 7 % (4-13); Mean Corpuscular HGB Conc 31.3 g/dL (31.5-36.5); Mean Corpuscular Volume 87 fL (80-100); NEUTROPHILS ABSOLUTE AUTO 9.01 K/mm3 (1.96-9.15); NEUTROPHILS PERCENT AUTO 79 % (41-73); NRBC ABSOLUTE 0.00 K/mm3 (0.00-0.02); NRBC Auto 0.0 /100 WBC (0.0-0.2); Platelet Count 172 K/mm3 (150-400); RDW Coefficient Variation 19.7 % (11.7-14.2); RDW Standard Deviation 62.0 fL (35.1-46.3)
[2025-04-01] MEDS ORDERED: Dose Adjust by Pharmacy XX STA (04:57)
[2025-04-01 05:53] LABS: Magnesium, Blood 2.2 mg/dL (1.6-2.4)
--- NOTE | 2025-04-01 06:16 | NUR ---
SHIFT SUMMARY PT REMAINS ON BIPAP 05/12 65% FIO2, SATS REMAIN >90% ON BIPAP. A/O ANSWERING QUESTIONS APPROPRIATELY, ABLE TO USE CALL LIGHT AND MAKE NEEDS KNOWN. BP REMAINS STABLE ON LEVOPHED GTT WITH MAP >65 AND SYSTOLIC >100 PER PARAMETERS. SINUS RHYTHM ON MONITOR WITH RATE IN THE 80S, TEMP BARCENAS IN PLACE AND DRAINING LARGE VOLUME OF DILUTE URINE TO GRAVITY. LEVO INFUSING AT 5MCG, HEPARIN AT 11U, PREDCEDEX AT 0.3 MCG AND CPN AT 94 ML INFUSING VIA PICC IN RUE. PT DENIES UNMET NEEDS AT THIS TIME, CALL LIGHT WITHIN REACH.
[2025-04-01 06:34] LABS: Alanine Aminotransfer (ALT/SGP 14 U/L (12-78); Albumin, Blood 2.7 g/dL (3.4-5.0); Albumin/Globulin Ratio 0.9 (0.8-1.8); Anion Gap 12 mmol/L (3-11); Aspartate Aminotrans (AST/SGOT 23 U/L (12-37); Bilirubin, Total 1.1 mg/dL (0.1-1.0); Blood Urea Nitrogen 41 mg/dL (8-24); CO2, Blood 29 mmol/L (21-32); Calcium, Blood 10.2 mg/dL (8.5-10.1); Chloride, Blood 100 mmol/L (98-108); Creatinine, Blood 1.09 mg/dL (0.40-1.00); Globulin, Blood 3.1 g/dL (2.2-4.0); Glucose, Blood 149 mg/dL (70-99); Phosphorus, Blood 3.2 mg/dL (2.5-4.9); Potassium, Blood 4.0 mmol/L (3.5-5.5); Sodium, Blood 137 mmol/L (136-145); Total Protein, Blood 5.8 g/dL (6.4-8.2); Triglycerides 97 mg/dL (30-160)
--- NOTE | 2025-04-01 08:00 | NUR ---
ASSUMPTION OF CARE ASSUMED CARE OF PATIENT AT APPROX 0700. PATIENT A&OX4 AND ABLE TO MAKE NEEDS KNOWN WITH THE CALL LIGHT. NO FOCAL DEFICITS. PATIENT ON BIPAP 14/18 65% WITH SPO2 >92%. HR SINUS IN THE 70S-90S. BP STABLE WITH MAPS >65 ON LEVOPHED. PICC TO JOSSUE WITH PRECEDEX, LEVOPHED, HEPARIN, AND TPN INFUSING PER EMAR. SEE FLOWSHEET FOR TITRATIONS. TEMP BARCENAS PATENT AND DRAINING URINE TO GRAVITY. CALL LIGHT IN REACH. BED IN LOWEST POSITION.
[2025-04-01] MEDS ORDERED: TPN Consult Notification XX ONE (11:05)
--- NOTE | 2025-04-01 11:07 | NUR ---
"Spiritual Care | Pt. Request Pt. is awake in bed and welcomes my visit. Pts. guests excused themselves so the Pt. could have some privacy. As a life review was facilitated the Pt. verbalized that she was Anabaptist and participated in the [facility]. Considered several matters of chantelle and belief. Listen with interest and a calming presence. Pt. verblized that she was anxious about what is next in her health journey. Pt. also verbalized that her son was arriving from [place] later today. Pastoral Care is given. At pts. request prayers are made on Pts. behalf. Pt. verbalized gratitude for the spiritual care visit. This animal hospital office supervisor brought the Pts. visitors back to the bedside."
[2025-04-01] MEDS ORDERED: Parenteral Electolytes 40 ML,Potassium Phosphate Dibasic 30 MM,Multivitamins 10 ML,ZINC... IV SCH (17:00)
--- NOTE | 2025-04-01 18:10 | NUR ---
SHIFT SUMMARY PATIENT A&OX4 AND ABLE TO MAKE NEEDS KNOWN WITH CALL LIGHT. PATIENT HAS HAD SOME ANXIETY THROUGHOUT THE DAY. NO FOCAL DEFICITS. PATIENT CAN BE FORGETFUL AT TIMES. PICC TO JOSSUE INFUSING LEVOPHED, PRECEDEX, HEPARIN, AND CPN PER EMAR. SEE FLOWSHEET FOR TITRATIONS. HR SINUS IN THE 60S-80S. MAP >65 AND SBP >[address] ORDERS WITH LEVOPHED INFUSING. PATIENT ON BIPAP 75% WITH SPO2 >90%. PATIENT HAS BEEN ON THE AIRVO MULTIPLE TIMES TODAY ON 60L AND 90-92%. TEMP BARCENAS PATENT AND DRAINING URINE TO GRAVITY. CALL LIGHT IN REACH. BED IN LOWEST POSITION. FAMILY UPDATED ON PLAN OF CARE BY DR STOVER.
[2025-04-02] VITALS (85 sets, daily range): BP systolic 73–148; BP diastolic 47–136
[2025-04-02 05:11] LABS: BASOPHILS ABSOLUTE AUTO 0.05 K/mm3 (0.00-0.23); BASOPHILS PERCENT AUTO 1 % (0-2); EOSINOPHILS ABSOLUTE AUTO 0.74 K/mm3 (0.00-0.68); EOSINOPHILS PERCENT AUTO 7 % (0-6); Hematocrit 39.8 % (33.0-51.0); Hemoglobin 12.8 g/dL (11.5-16.0); IMMATURE GRAN ABSOLUTE AUTO 0.02 K/mm3 (0.00-0.10); IMMATURE GRAN PERCENT AUTO 0 % (0-1); LYMPHOCYTES ABSOLUTE AUTO 0.87 K/mm3 (0.84-5.20); LYMPHOCYTES PERCENT AUTO 8 % (21-46); MONOCYTES ABSOLUTE AUTO 0.77 K/mm3 (0.16-1.47); MONOCYTES PERCENT AUTO 7 % (4-13); Mean Corpuscular HGB Conc 32.2 g/dL (31.5-36.5); Mean Corpuscular Volume 85 fL (80-100); NEUTROPHILS ABSOLUTE AUTO 8.07 K/mm3 (1.96-9.15); NEUTROPHILS PERCENT AUTO 77 % (41-73); NRBC ABSOLUTE 0.00 K/mm3 (0.00-0.02); NRBC Auto 0.0 /100 WBC (0.0-0.2); Platelet Count 159 K/mm3 (150-400); RDW Coefficient Variation 19.4 % (11.7-14.2); RDW Standard Deviation 60.1 fL (35.1-46.3)
[2025-04-02 05:33] LABS: Alanine Aminotransfer (ALT/SGP 13.0 U/L (12-78); Albumin, Blood 2.5 g/dL (3.4-5.0); Albumin/Globulin Ratio 0.8 (0.8-1.8); Anion Gap 8.0 mmol/L (3-11); Aspartate Aminotrans (AST/SGOT 19.0 U/L (12-37); Bilirubin, Total 1.1 mg/dL (0.1-1.0); Blood Urea Nitrogen 43.0 mg/dL (8-24); CO2, Blood 32.0 mmol/L (21-32); Calcium, Blood 10.0 mg/dL (8.5-10.1); Chloride, Blood 99.0 mmol/L (98-108); Creatinine, Blood 0.95 mg/dL (0.40-1.00); Globulin, Blood 3.1 g/dL (2.2-4.0); Glucose, Blood 160.0 mg/dL (70-99); Magnesium, Blood 2.2 mg/dL (1.6-2.4); Phosphorus, Blood 3.2 mg/dL (2.5-4.9); Potassium, Blood 3.7 mmol/L (3.5-5.5); Sodium, Blood 135.0 mmol/L (136-145); Total Protein, Blood 5.6 g/dL (6.4-8.2)
[2025-04-02] MEDS ORDERED: Dose Adjust by Pharmacy XX STA ×3 (06:19→19:49)
[2025-04-02] MEDS ORDERED: Heparin Sodium 5000 Units/ML 1ML MDV IV ONE (06:25)
--- NOTE | 2025-04-02 06:26 | NUR ---
SHIFT SUMMARY PT SLEEPING T/O THE NIGHT, ALERT AND ORIENTED WHEN AWAKE, ABLE TO MAKE NEEDS KNOWN. PT ON BIPAP @ 75% FIO2 WITH SPO2 >94%, PT SIGNIFICANTLY DESATS WHEN BIPAP IS REMOVED EVEN ON AIRVO. SBP IN THE 100'S WHILE TITRATING LEVOPHED PRN, HR IN THE 80'S. NO BM THIS SHIFT. TEMP BARCENAS DRAINING TO GRAVITY. HEPARIN LEVELS LOW PER LAST LAB RESULTS, BOLUS ORDERED AND HEPARIN GTT INCREASED TO 15 UNITS/KG/HR. LEVOPHED GTT INFUSING, PPN INFUSING. BED IN LOWEST POSITION, CALL LIGHT WITHIN REACH. WILL REPORT TO ONCOMING RN.
[2025-04-02] MEDS ORDERED: TPN Consult Notification XX ONE (11:40)
--- NOTE | 2025-04-02 11:59 | NUR ---
REASSESSMENT PT HAS BEEN RESTING IN BED THROUGHOUT THE MORNING ON THE BIPAP. SHE TOLERATED A 30 MINUTE BREAK FROM BIPAP WITH THE AIRVO AT 60L AND 90%. SPO2 RANGED FROM 84-90% DEPENDING ON HOW MUCH THE PATIENT WAS TALKING. SHE WENT BACK ON BIPAP FOR A COUPLE HOURS AND IS BACK ON AIR VO NOW VISITING WITH HER SON. LUNGS ARE CLEAR, BUT DIM. SHE GETS SHORT OF BREATH WITH ANY ACTIVITY. SR WITH OCCASIONAL PAC. LEVOPHED HAS BEEN TITRATED UP TO 8 MCG/MIN TO KEEP SBP ABOVE 100.
[2025-04-02] MEDS ORDERED: PARENTERAL ELECTOLYTES POTASSIUM PHOSPHATE DIBASIC MM MULTIVITAMINS IV SCH (17:00)
[2025-04-02] MEDS ORDERED: [UNRECOGNIZED DRUG - OTHER] IV SCH (17:00)
--- NOTE | 2025-04-02 17:09 | NUR ---
SHIFT SUMMARY PT SPENT ALL AFTERNOON ON AIRVO 60L AND 90%. WHEN TALKING SHE WILL DROP TO THE LOW 80S AND HAVE TO BE REMINDED TO TAKE BREATHS THROUGH HER NOSE TO GET HER SPO2 BACK UP. HER LUNGS ARE CLEAR, BUT DIM IN THE BASES. SR WITH PACS. LEVOPHED CONTINUES AT 8MCG/MIN TO KEEP SBP ABOVE [address] STOVER GAVE OK FOR PT TO HAVE SOME DRINKS SO SHE WAS ABLE TO HAVE SOME COFFEE AND HALF AN ENSURE THROUGHOUT THE AFTERNOON. BARCENAS WITH LIGHT YELLOW URINE. PT'S SON, , AND SEVERAL FRIENDS VISITED THROUGHOUT THE DAY.
--- NOTE | 2025-04-02 20:04 | NUR ---
ASSUMPTION OF CARE: ASSUMED CARE AT START OF SHIFT (1899). REPORT RECEIVED FROM DAY SHIFT RN. PT IS DOING WELL AND RESTING IN BED. PT IS ALERT AND FOLLOWING COMMONADS. ON LEVOPHED AND PRECEDEX GTT PER EMR ORDERS. ON BIPAP @ 14/8/75%. LUNG SOUNDS ARE CLEAR AND DIMINISHED THROUGHOUT, SPO2 >95%. SINUS RYTHM WITH SBP: 100-120'S MAP >65 HR: 80-90'S. IV: PICC LINE IN RUE. BARCENAS CATHETER IN PLACE AND DRAINING TO GRAVITY. LINES, CORDS, AND TUBES PLACED OUT OF REACH. CALL LIGHT PLACED WITHIN REACH.
[2025-04-03] VITALS (92 sets, daily range): BP systolic 81–136; BP diastolic 48–98
[2025-04-03 03:56] LABS: BASOPHILS ABSOLUTE AUTO 0.05 K/mm3 (0.00-0.23); BASOPHILS PERCENT AUTO 1 % (0-2); EOSINOPHILS ABSOLUTE AUTO 1.13 K/mm3 (0.00-0.68); EOSINOPHILS PERCENT AUTO 11 % (0-6); Hematocrit 40.2 % (33.0-51.0); Hemoglobin 12.8 g/dL (11.5-16.0); IMMATURE GRAN ABSOLUTE AUTO 0.02 K/mm3 (0.00-0.10); IMMATURE GRAN PERCENT AUTO 0 % (0-1); LYMPHOCYTES ABSOLUTE AUTO 1.20 K/mm3 (0.84-5.20); LYMPHOCYTES PERCENT AUTO 11 % (21-46); MONOCYTES ABSOLUTE AUTO 1.10 K/mm3 (0.16-1.47); MONOCYTES PERCENT AUTO 10 % (4-13); Mean Corpuscular HGB Conc 31.8 g/dL (31.5-36.5); Mean Corpuscular Volume 85 fL (80-100); NEUTROPHILS ABSOLUTE AUTO 7.26 K/mm3 (1.96-9.15); NEUTROPHILS PERCENT AUTO 67 % (41-73); NRBC ABSOLUTE 0.00 K/mm3 (0.00-0.02); NRBC Auto 0.0 /100 WBC (0.0-0.2); Platelet Count 173 K/mm3 (150-400); RDW Coefficient Variation 19.1 % (11.7-14.2); RDW Standard Deviation 59.4 fL (35.1-46.3)
[2025-04-03] MEDS ORDERED: Dose Adjust by Pharmacy XX STA (04:08)
[2025-04-03 04:15] LABS: Anion Gap 9.0 mmol/L (3-11); Blood Urea Nitrogen 45.0 mg/dL (8-24); CO2, Blood 30.0 mmol/L (21-32); Calcium, Blood 10.6 mg/dL (8.5-10.1); Chloride, Blood 99.0 mmol/L (98-108); Creatinine, Blood 0.89 mg/dL (0.40-1.00); Glucose, Blood 154.0 mg/dL (70-99); Magnesium, Blood 2.1 mg/dL (1.6-2.4); Phosphorus, Blood 3.0 mg/dL (2.5-4.9); Potassium, Blood 3.7 mmol/L (3.5-5.5); Sodium, Blood 134.0 mmol/L (136-145)
--- NOTE | 2025-04-03 06:41 | NUR ---
SHIFT SUMMARY: PT IS DOING WELL AND RESTING IN BED. NO ACUTE CHANGES THROUGHOUT THE SHIFT. PT IS WAS ABLE TO SLEEP PART OF THE NIGHT. VITAL SIGNS REMAINS STABLE. PT REMAINS ON LEVOPHED, PRECEDEX, AND HEPARIN GTT PER EMR ORDERS. PT ON BIPAP: 14/% SPO2 >95%. PICC LINE IN RUE. BARCENAS CATHETER IN PLACE AND DRAINING TO GRAVITY. LINES, CORDS, AND TUBES PLACED OUT OF REACH. CALL LIGHT PLACED WITHIN REACH.
--- NOTE | 2025-04-03 07:27 | NUR ---
ASSUMPTION OF CARE RECEIVED BEDSIDE REPORT FROM NOC RN. PT RESTING COMFORTABLY IN BED c EYE MASK/EAR PLUGS/BIPAP IN USE. PT VERBALIZES MILD HEADACHE, REQUESTS TYLENOL & DECAF COFFEE. ALL LIGHTS OFF IN ROOM. PT REQUESTS TO MAINTAIN REDUCED STIMULI ENVIRONMENT. CALL LIGHT IN REACH.
[2025-04-03] MEDS ORDERED: TPN Consult Notification XX ONE (11:15)
[2025-04-03] MEDS ORDERED: Ondansetron HCl 2 MG / ML 2ML Vial IV PRN (16:30)
[2025-04-03] MEDS ORDERED: POTASSIUM CHLORIDE 40 MEQ IV SCH (17:00)
[2025-04-03] MEDS ORDERED: SODIUM ACETATE 40 MEQ IV SCH (17:00)
[2025-04-03] MEDS ORDERED: SODIUM CHLORIDE 30 MEQ IV SCH (17:00)
[2025-04-03] MEDS ORDERED: [UNRECOGNIZED DRUG - OTHER] IV SCH (17:00)
--- NOTE | 2025-04-03 18:32 | NUR ---
SHIFT SUMMARY NO ACUTE CHANGES THIS SHIFT. SPO2 >92% ON BIPAP, 14/8/75%. PT SPO2 >90% ON AIRVO THROUGHOUT MOST OF THE DAY, PT SWITCHED BACK TO BIPAP APPROX 0530 R/T SPO2 DESAT <83%. SBP >100 & MAP >65 ON 8MCG/MIN LEVOPHED. PT ABLE TO TOLERATE PO FLUIDS c PO MEDS, OTHERWISE NPO. TEMP BARCENAS DRAINING YELLOW URINE TO GRAVITY. NO BM THIS SHIFT, PT REPORT 1 EPISODE OF NAUSEA, NO EMESES, RELIEF c ZOFRAN PER EMAR. PT SPENT AFTERNOON UP TO CHAIR c LIFT, TOELRATED WELL. PT RESTING IN BED c FAMILY AT BEDSIDE. CALL LIGHT IN REACH. REPORT TO BE GIVEN TO MAGNUS FORBES.
--- NOTE | 2025-04-03 19:45 | NUR ---
ASSUMPTION OF CARE: ASSUMED CARE AT START OF SHIFT (1899). REPORT RECEIVED FROM DAY SHIFT RN. PT IS DOING WELL AND RESTING IN BED. PT IS ALERT AND FOLLOWING COMMANDS. PT DENIES ANY PAIN, CP, OR SOB AT THIS TIME. PT IS ON LEVOPHED AND HEPARIN GTT PER EMR ORDERS. LUNG SOUNDS ARE CLEAR BUT DIMINISHED, ON BIPAP: 14/8/75% SPO2 >92%. SINUS RYTHM WITH SBP: 100'S MAP >65 HR: 90'S. IV: PICC LINE IN RUE. BARCENAS CATHETER IN PLACE AND DRAINING TO GRAVITY. LINES, CORDS, TUBES PLACED OUT OF REACH. CALL LIGHT PLACED WITHIN REACH.
[2025-04-04] VITALS (85 sets, daily range): BP systolic 76–136; BP diastolic 52–105
[2025-04-04 03:10] LABS: BASOPHILS ABSOLUTE AUTO 0.06 K/mm3 (0.00-0.23); BASOPHILS PERCENT AUTO 1 % (0-2); EOSINOPHILS ABSOLUTE AUTO 1.08 K/mm3 (0.00-0.68); EOSINOPHILS PERCENT AUTO 10 % (0-6); Hematocrit 40.2 % (33.0-51.0); Hemoglobin 12.5 g/dL (11.5-16.0); IMMATURE GRAN ABSOLUTE AUTO 0.06 K/mm3 (0.00-0.10); IMMATURE GRAN PERCENT AUTO 1 % (0-1); LYMPHOCYTES ABSOLUTE AUTO 1.52 K/mm3 (0.84-5.20); LYMPHOCYTES PERCENT AUTO 14 % (21-46); MONOCYTES ABSOLUTE AUTO 1.21 K/mm3 (0.16-1.47); MONOCYTES PERCENT AUTO 12 % (4-13); Mean Corpuscular HGB Conc 31.1 g/dL (31.5-36.5); Mean Corpuscular Volume 88 fL (80-100); NEUTROPHILS ABSOLUTE AUTO 6.59 K/mm3 (1.96-9.15); NEUTROPHILS PERCENT AUTO 63 % (41-73); NRBC ABSOLUTE 0.00 K/mm3 (0.00-0.02); NRBC Auto 0.0 /100 WBC (0.0-0.2); Platelet Count 207 K/mm3 (150-400); RDW Coefficient Variation 19.2 % (11.7-14.2); RDW Standard Deviation 61.5 fL (35.1-46.3)
[2025-04-04 03:25] LABS: Anion Gap 8.0 mmol/L (3-11); Blood Urea Nitrogen 37.0 mg/dL (8-24); CO2, Blood 28.0 mmol/L (21-32); Calcium, Blood 10.0 mg/dL (8.5-10.1); Chloride, Blood 103.0 mmol/L (98-108); Creatinine, Blood 0.8 mg/dL (0.40-1.00); Glucose, Blood 157.0 mg/dL (70-99); Magnesium, Blood 2.1 mg/dL (1.6-2.4); Phosphorus, Blood 3.0 mg/dL (2.5-4.9); Potassium, Blood 4.0 mmol/L (3.5-5.5); Sodium, Blood 135.0 mmol/L (136-145)
[2025-04-04] MEDS ORDERED: Clarify Drug Order XX ONE (06:20)
--- NOTE | 2025-04-04 06:34 | NUR ---
SHIFT SUMMARY: PT IS DOING WELL AND RESTING IN BED. NO ACUTE CHANGES THROUGHOUT THE SHIFT. PT WAS ABLE TO SLEEP PART OF THE NIGHT AND THE REMAINED ON BIPAP: . PT ON HEPARING, LEVOPHEDM, AND PRECEDEX GTT PER EMR ORDERS. VITAL SIGNS REMAIN STABLE. PICC LINE IN RUE. BARCENAS CATHETER IN PLACED AND DRAINING TO GRAVITY. LINES, CORDS, AND TUBES PLACED OUT OF REACH. CALL LIGHT PLACED WITHIN REACH.
--- NOTE | 2025-04-04 08:00 | NUR ---
ASSUMED CARE A&Ox4, NSR W/ PAROXYSMAL ASYMPTOMATIC AFIB. HR 80-90'S, BP 100-110'S AND MAP >65.LEVOPHED SET TO 8MCG/MIN. LUNG SOUNDS CLEAR W/ THE EXCEPTION OF ABSENT SOUNDS IN RLL D/T HX OF RLL LOBECTOMY. O2 SAT DROPPED TO 80% WHILE PT WAS ON AIRVO 60L 90%. SWITCHED TO BIPAP AND PT IS NOW MAINTAINING O2 SAT >88%. PRECEDEX TURNED OFF PT NO LONGER NEEDED IT FOR SLEEP. HEPARIN RUNNING AT 15U/KG/HR. BOWEL SOUNDS HYPOACTIVE. PT HAS NOT HAD A BM IN 5 DAYS, BUT ALSO HAS BEEN NPO. REPORTS MILD ABD PAIN IN LLQ LIKELY D/T CONSTIPATION. BOWEL MEDS GIVEN PER JUN.
--- NOTE | 2025-04-04 20:00 | NUR ---
DESATURATION ATTEMPTED TO PLACE PT ON AIRVO TO GIVE PO MEDS. SPO2 IMMEDIATELY DECREASED TO 70s AND THEN CONTINUES TO DROP DOWN TO MID-30s WITH AIRVO ON. PT BECAME INCREASINGLY DYSPNEIC. IMMEDIATELY PLACED BACK ON BIPAP 14/8 WITH FIO2 INCREASED TO 100%. SATURATIONS INCREASED UP TO 95% AFTER APPROXIMATELY 45-60 SECONDS. PO MEDICATIONS HELD AT THIS TIME.
--- NOTE | 2025-04-04 20:15 | NUR ---
PRECEDEX GTT PT WITH INCREASED RESTLESSNESS AND ANXIETY FROM HAVING TO KEEP BIPAP MASK ON. PRECEDEX STARTED AT 0.3MCG/KG/HR AT 2002 AND THEN INCREASED TO 0.4MCG/KG/HR AT THIS TIME.
[2025-04-04] MEDS ORDERED: Morphine Sulfate 4 MG/1 ML Injection IV PRN (20:25)
--- NOTE | 2025-04-04 20:25 | NUR ---
PAIN PT C/O INCREASING PAIN IN LEFT HIP- REQUESTING PAIN MEDICATION. CALL TO MARCELLUS REYNOSO NP- NEW ORDER RECEIVED FOR MORPHINE IV.
[2025-04-05] VITALS (83 sets, daily range): BP systolic 73–144; BP diastolic 47–131
[2025-04-05 04:06] LABS: Hematocrit 39.1 % (33.0-51.0); Hemoglobin 12.1 g/dL (11.5-16.0); Platelet Count 202 K/mm3 (150-400)
[2025-04-05 04:30] LABS: Alanine Aminotransfer (ALT/SGP 19.0 U/L (12-78); Albumin, Blood 2.3 g/dL (3.4-5.0); Albumin/Globulin Ratio 0.7 (0.8-1.8); Anion Gap 8.0 mmol/L (3-11); Aspartate Aminotrans (AST/SGOT 30.0 U/L (12-37); Bilirubin, Total 0.7 mg/dL (0.1-1.0); Blood Urea Nitrogen 34.0 mg/dL (8-24); CO2, Blood 27.0 mmol/L (21-32); Calcium, Blood 9.9 mg/dL (8.5-10.1); Chloride, Blood 104.0 mmol/L (98-108); Creatinine, Blood 0.77 mg/dL (0.40-1.00); Globulin, Blood 3.5 g/dL (2.2-4.0); Glucose, Blood 147.0 mg/dL (70-99); Potassium, Blood 4.4 mmol/L (3.5-5.5); Sodium, Blood 135.0 mmol/L (136-145); Total Protein, Blood 5.8 g/dL (6.4-8.2)
[2025-04-05] MEDS ORDERED: Clarify Drug Order XX ONE (06:35)
--- NOTE | 2025-04-05 06:40 | NUR ---
SHIFT SUMMARY REMAINED ON BIPAP ALL SHIFT- 05/01, BUR 14, FIO2 100% ATTEMPTS TO TITRATE FIO2 DOWN WERE UNSUCCESSFUL. PT DOES NOT TOLERATE BEING OFF OF BIPAP FOR ANY AMOUNT OF TIME. PRECEDEX TITRATED BETWEEN 0.3-0.5MCG/KG/HR FOR COMFORT- NOW INFUSING AT 0.4MCG/KG/HR. PT ROUSES TO STIMULI AND IS ABLE TO MAKE NEEDS KNOWN. USES CALL LIGHT AT TIMES. MONITOR SHOWS NSR-ST, RATE 90s-100s. LEVOPHED TITRATED FROM 8 DOWN TO 7MCG/MIN TO MAINTAIN MAP >65 AND SBP >100. TMAX 101.3F. NPO T/O SHIFT. BARCENAS PATENT AND DRAINING TO GRAVITY. C/O LOWER ABD PAIN AND LEFT HIP PAIN- MEDICATED WITH MS 4MG IV X 2 DOSES WITH GOOD RELIEF. HEPARIN INFUSING AT 15UNITS/KG/HR PER PHARMACY. TPN INFUSING AT 94MLS/HR PER ORDER. WILL REPORT TO ONCOMING RN WHEN AVAILABLE.
--- NOTE | 2025-04-05 07:22 | NUR ---
ASSUMED CARE ASSUMED CARE AT APPROXIMATELY 0700. PT RESTING IN BED. INTERACTING WITH STAFF APPROPRIATELY DURING REPORT, BUT IS SLIGHTLY MORE CONFUSED AND LOOKING FOR OBJECTS IN ROOM THAT AREN'T THERE . ON BIPAP W/ O2 SAT MAINTAINING >90%. ON CONTINUOUS CARDIAC MONITORING. BARCENAS IN PLACE, PATENT AND DRAINING TO GRAVITY. LEVOPHED, CPN, HEPARIN, AND PRECEDEX INFUSING. REFER TO SHIFT ASSESSMENT FOR FULL DETAILS.
[2025-04-05] MEDS ORDERED: Morphine Sulfate 20 MG/1ML 1 ML Oral Syringe SL PRN (14:00)
[2025-04-05] MEDS ORDERED: Ketorolac Tromethamine 15mg Vial IV ONE (17:55)
--- NOTE | 2025-04-05 18:33 | NUR ---
SHIFT SUMMARY PT REMAINS ON PRECEDEX AT 0.4. ABLE TO FOLLOW COMMANDS, MAKE PURPOSEFUL MOVEMENTS, AND MAKE NEEDS KNOWN. TMAX 102.0. MEDICATED c [place] TYLENOL AND IV TORADOL. REPORTS PAIN IN ABDOMEN THAT IS RELIEVED c PAIN MEDICATION THAT WAS ADMINISTERED FOR HER HIP. CONTINUOUS CARDIAC MONITORING SHOWS SR-ST, LEVOPHED TITRATED TO MAINTAIN SBP > 100 AND MAP > 65. ON BIPAP c SETTINGS OF 14/8 AND 100%. O2 SATURATIONS HIGH 80'S - LOW 90'S. NO BM THIS SHIFT. NPO. BARCENAS PATENT AND DRAINING TO GRAVITY. PICC INFUSING CPN, LEVOPHED AT 4, AND HEPARIN AT 15. WILL CONTINUE TO MONITOR AND REPORT TO ONCOMING RN.
[2025-04-06] VITALS (48 sets, daily range): BP systolic 77–119; BP diastolic 52–93
[2025-04-06 05:29] LABS: Hematocrit 40.0 % (33.0-51.0); Hemoglobin 12.0 g/dL (11.5-16.0); Platelet Count 233 K/mm3 (150-400)
--- NOTE | 2025-04-06 05:59 | NUR ---
SHIFT SUMMARY REMAINED ON BIPAP T/O SHIFT- 05/12, BUR 14, FIO2 100%. SPO2 FLUCTUATING BETWEEN 85-90%, BUT STAYS MOSTLY AROUND 86-88%. PT HAS DISCONNECTED BIPAP SEVERAL TIMES AND SPO2 DROPS ALMOST IMMEDIATELY- HAS DROPPED LOW 36%. IT TAKES SEVERAL MINUTES FOR SATS TO RECOVER AFTER THESE EVENTS. PT IS ORIENTED TO SELF AND TO THE FACT THAT SHE IS IN THE HOSPITAL. REQUIRES FREQUENT REORIENTATION TO DATE/TIME AND TO WHY SHE IS IN THE HOSPITAL. OCCASIONAL VISUAL HALLUCINATIONS NOTED. PRECEDEX TITRATED BETWEEN 0.3-0.6MCG/KG/HR. NOW INFUSING AT 0.6MCG/KG/HR. MEDICATED WITH ROXANOL 10MG SL FOR AIR HUNGER X 1 DOSE AND WITH MS 4MG IV X 1 DOSE FOR C/O PAIN. LEVOPHED TITRATED BETWEEN 8-10 MCG/MIN TO MAINTAIN MAP >65 AND SBP >100. NOW INFUSING AT 9MCG/MIN. HEPARIN INFUSING AT 15UNITS/KG/HR PER PHARMACY. CPN AT 94MLS/HR. NPO. BARCENAS PATENT AND DRAINING TO GRAVITY- YELLOW URINE WITH SOME SEDIMENT NOTED. JOSSUE PICC PATENT- SITE IS ECCHYMOTIC. TMAX 101.9F. WILL REPORT TO ONCOMING RN WHEN AVAILABLE.
--- NOTE | 2025-04-06 06:21 | NUR ---
CALL TO FAMILY SON, FABIOLA, NOTIFIED OF PT'S DETERIORATING CONDITION. HE WILL BE COMING IN SOON.
[2025-04-06] MEDS ORDERED: Dose Adjust by Pharmacy XX STA (06:29)
[2025-04-06] MEDS ORDERED: Heparin Sodium 5000 Units/ML 1ML MDV IV ONE (06:30)
--- NOTE | 2025-04-06 07:00 | NUR ---
ASSUMED CARE ASSUMED CARE AT APPROXIMATELY 0700 FROM [facility]. PT A&Ox2 (PERSON/PLACE), DROWSY. PRECEDEX INFUSING AT 0.6 MCG/KG/HR. O2 SAT RANGING IN MID 80'S ON BIPAP 14/8/100%. LEVOPHED INFUSING AT 9 MCG/MIN. ON TELEMETRY, NSR, HR RANGES 70-80'S, BP RANGES IN 90-100'S SYSTOLIC. BOWEL SOUNDS HYPOACTIVE, C/O MILD LLQ DISCOMFORT LIKELY D/T CONSTIPATION. FEBRILE. HEPARIN 17U/KG/HR AND CPN INFUSING 94 ML/HR. BARCENAS PATENT AND DRAINING TO GRAVITY. PICC IN [facility], DRESSING C/D/I. FAMILY AT BEDSIDE.
[2025-04-06] MEDS ORDERED: Ketorolac Tromethamine 15mg Vial IV PRN (10:35)
--- NOTE | 2025-04-06 11:00 | NUR ---
PT PLACED ON COMFORT CARE. FAMILY, PT IN AGREEMENT. PT HAS CONTINUED WEARING MASK, STATES SHE WANTS TO BE MADE COMFORTABLE. DR. BRADLEY PLACING ORDERS. BS RN ALSO AWARE, WILL ASSIST WITH PT'S COMFORT.
[2025-04-06] MEDS ORDERED: Atropine Sulfate 1% Opth Soln 2ML BTL SL PRN (11:30)
[2025-04-06] MEDS ORDERED: Morphine Sulfate 20 MG/1ML 1 ML Oral Syringe SL PRN (11:35)
--- NOTE | 2025-04-06 12:14 | NUR ---
UPDATE PALLIATIVE CARE NURSE DISCUSSED WITH FAMILY AND PATIENT REGARDING GOALS OF CARE AND COMFORT CARE. PT AND FAMILY AGREED TO COMFORT CARE AND CALL MADE TO DR BRADLEY WHO PROVIDED COMFORT ORDERS. PT PLACED ON AIRVO AT 1155 AND GIVEN WATER, SL MEDS AND PO MEDS. FAMILY AT BEDSIDE.
== END 2025-04-06 14:32 | DRG 175 ==
LOC: ER 11:53 → ICUE 15:03
PROVIDERS: Emergency Medicine; Internal Medicine; Internal Medicine Critical Care Medicine; Physician Assistant; Student in an Organized Health Care Education/Training Program; ADMIT Student in an Organized Health Care Education/Training Program
PROC: 5A09457 Assistance with Respiratory Ventilation, 24-96 Consecutive Hours, Continuous Positive Airway Pressure (ICD-10-PCS; principal; 2025-03-28)
PROC: 3E033XZ Introduction of Vasopressor into Peripheral Vein, Percutaneous Approach (ICD-10-PCS; 2025-03-28)
PROC: 3E03329 Introduction of Other Anti-infective into Peripheral Vein, Percutaneous Approach (ICD-10-PCS; 2025-03-28)
PROC: 3E02340 Introduction of Influenza Vaccine into Muscle, Percutaneous Approach (ICD-10-PCS; 2025-03-28)
PROC: 0T9B70Z Drainage of Bladder with Drainage Device, Via Natural or Artificial Opening (ICD-10-PCS; 2025-03-28)
PROC: 05HY33Z Insertion of Infusion Device into Upper Vein, Percutaneous Approach (ICD-10-PCS; 2025-03-28)
PROC: 5A0945A Assistance with Respiratory Ventilation, 24-96 Consecutive Hours, High Flow/Velocity Cannula (ICD-10-PCS; 2025-03-29)
PROC: 3E0336Z Introduction of Nutritional Substance into Peripheral Vein, Percutaneous Approach (ICD-10-PCS; 2025-03-31)
DX: I26.09 Other pulmonary embolism with acute cor pulmonale (principal); I50.33 Acute on chronic diastolic (congestive) heart failure; J96.21 Acute and chronic respiratory failure with hypoxia; N17.9 Acute kidney failure, unspecified; J44.1 Chronic obstructive pulmonary disease with (acute) exacerbation; Z68.41 Body mass index [BMI] 40.0-44.9, adult; R18.8 Other ascites; N39.0 Urinary tract infection, site not specified; Z51.5 Encounter for palliative care; Z66 Do not resuscitate; F32.A Depression, unspecified; I11.0 Hypertensive heart disease with heart failure; K59.00 Constipation, unspecified; I27.21 Secondary pulmonary arterial hypertension; R73.03 Prediabetes; R57.0 Cardiogenic shock; Z99.81 Dependence on supplemental oxygen; Z78.1 Physical restraint status; I50.811 Acute right heart failure; G47.33 Obstructive sleep apnea (adult) (pediatric); J43.9 Emphysema, unspecified; I25.10 Atherosclerotic heart disease of native coronary artery without angina pectoris; J84.10 Pulmonary fibrosis, unspecified; I07.1 Rheumatic tricuspid insufficiency; R91.1 Solitary pulmonary nodule; E78.5 Hyperlipidemia, unspecified; K22.70 Barrett's esophagus without dysplasia; E66.01 Morbid (severe) obesity due to excess calories; Z23 Encounter for immunization; Z79.51 Long term (current) use of inhaled steroids; Z79.4 Long term (current) use of insulin; Z79.899 Other long term (current) drug therapy; Z79.85 Long-term (current) use of injectable non-insulin antidiabetic drugs; Z79.2 Long term (current) use of antibiotics; Z85.118 Personal history of other malignant neoplasm of bronchus and lung; Z90.2 Acquired absence of lung [part of]; Z87.81 Personal history of (healed) traumatic fracture; Z90.89 Acquired absence of other organs; Z98.890 Other specified postprocedural states; Z87.442 Personal history of urinary calculi; Z87.891 Personal history of nicotine dependence; Z91.040 Latex allergy status; Z99.89 Dependence on other enabling machines and devices; Z88.8 Allergy status to other drugs, medicaments and biological substances; Z86.14 Personal history of Methicillin resistant Staphylococcus aureus infection; Z85.3 Personal history of malignant neoplasm of breast
CPT/HCPCS: 36415; 36569; 51702; 71045; 71260; 80048; 80053; 80202; 81003; 82330; 82803; 82947; 83605; 83735; 83880; 84100; 84478; 84484; 85014; 85018; 85025; 85049; 85379; 85520; 85610; 85730; 87040; 87637; 93005; 93010; 93306; 93308; 93321; 93970; 94640; 94660; 94664; 94760; 94762; 96365; 96366; 96368; 96375; 99285-25; A6590; A9270; C1751; J0696; J1265; J1644; J1885; J1938; J2270; J2405; J2470; J2919; J3373; J3411; J3475; J3480; J7040; J7050; J7131; Q9967